=== PATIENT | male | born 1950 | race Caucasian/White ===

== ENCOUNTER 2016-11-17 10:58 | Observation (INO) | payer MEDICARE ==
[2016-11-17] VITALS (7 sets, daily range): BP systolic 129–173; BP diastolic 80–89; PULSE 63–75; RESP 16–20; TEMP 96.9–98.1; O2SAT 96–100
[~2016-11-17] VITALS: Ht 170.2 cm; Wt 72.4 kg
[2016-11-17] MEDS ORDERED: ATOR40TA16 PO (11:16)
[2016-11-17] MEDS ORDERED: DILT120T PO (11:16)
[2016-11-17] MEDS ORDERED: MONT10TA4 PO (11:16)
[2016-11-17] MEDS ORDERED: GLUC500C5 PO (11:16)
[2016-11-17] MEDS ORDERED: CALC1TAB87 PO (11:16)
[2016-11-17] MEDS ORDERED: ASPI325T PO (11:16)
[2016-11-17] MEDS ORDERED: MELO7.5T4 PO (11:16)
[2016-11-17] MEDS ORDERED: SODIUM CHLORIDE 0.9% FLUSH 5 ML FLUSH IVF PRN ×2 (11:30→12:45)
--- NOTE | 2016-11-17 11:32 | PD ---
HPI Chief Complaint: Chest Pain Time Seen by Provider: 11:09 Travel History International Travel<30 days: No Contact w/Intl Traveler<30days: No Traveled to known affect area: No History of Present Illness HPI This patient complains of chest pain. Duration is 2 weeks. Location is [facility]. He is currently feeling okay. Symptoms are brought on by exertion. He has history of cardiac stent in 2001. He had a stress test 18 months ago in [place]. He has no local cardiac physician. Symptoms severity is moderate. Symptoms fade after he rests. PFSH Past Medical History Heart Rhythm Problems: Yes Cardiovascular Problems: Yes High Cholesterol: Yes COPD: Yes Coronary Artery Disease: Yes Diminished Hearing: No GERD: Yes Hypertension: Yes Tetanus Vaccination: Unknown Influenza Vaccination: Yes Past Surgical History Coronary Stent: Yes Social History Alcohol Use: Yes Tobacco Use: No Substance Use: No Allergies-Medications (Allergen,Severity, Reaction): Coded Allergies: No Known Allergies (Unverified , 11/17/16) Reported Meds & Prescriptions Reported Meds & Active Scripts Active Reported Glucosamine (Glucosamine Sulfate) 500 Mg Cap 500 Mg PO DAILY Meloxicam 7.5 Mg Tab 7.5 Mg PO DAILY Calcium 600 with Vitamin D (Calcium Carbonate-Cholecalciferol) 600-400 mg-Unit Tab 1 Tab PO DAILY Aspirin 325 Mg Tab 325 Mg PO DAILY Montelukast (Montelukast Sodium) 10 Mg Tab 10 Mg PO HS Diltiazem (Diltiazem HCl) 120 Mg Tab 240 Mg PO DAILY Atorvastatin (Atorvastatin Calcium) 40 Mg Tab 40 Mg PO HS Review of Systems General / Constitutional: No: Fever Eyes: No: Visual changes HENT: No: Headaches Cardiovascular: Positive: Chest Pain or Discomfort Respiratory: No: Shortness of Breath Gastrointestinal: No: Abdominal Pain Genitourinary: No: Dysuria Musculoskeletal: No: Pain Skin: No Rash Neurologic: No: Weakness Psychiatric: No: Depression Endocrine: No: Polydipsia Hematologic/Lymphatic: No: Easy Bruising Physical Exam Narrative GENERAL: Well-nourished, well-developed patient in no apparent distress. SKIN: Warm and dry. HEAD: Atraumatic. Normocephalic. EYES: Pupils equal and round. No scleral icterus. No injection or drainage. ENT: No nasal bleeding or discharge. Mucous membranes pink and moist. NECK: Trachea midline. No JVD. CARDIOVASCULAR: Regular rate and rhythm. No murmur appreciated. RESPIRATORY: No accessory muscle use. Clear to auscultation. Breath sounds equal bilaterally. GASTROINTESTINAL: Abdomen soft, non-tender, nondistended. Hepatic and splenic margins not palpable. MUSCULOSKELETAL: No obvious deformities. No clubbing. No cyanosis. No edema. NEUROLOGICAL: Awake and alert. No obvious cranial nerve deficits. Motor grossly within normal limits. Normal speech. PSYCHIATRIC: Appropriate mood and affect; insight and judgment normal. Data Data Last Documented VS Vital Signs Date Time Temp Pulse Resp B/P Pulse Ox O2 Delivery O2 Flow Rate FiO2 11/17/16 12:31 66 16 166/80 97 Room Air 11/17/16 11:08 98.1 Orders Basic Metabolic Panel (Bmp) (11/17/16 11:22) Ckmb (Isoenzyme) Profile (11/17/16 11:22) Complete Blood Count With Diff (11/17/16 11:22) Prothrombin Time / Inr (Pt) (11/17/16 11:22) Act Partial Throm Time (Ptt) (11/17/16 11:22) Troponin I (11/17/16 11:22) Chest, Single Ap (11/17/16 11:22) Ecg Monitoring (11/17/16 11:22) Iv Access Insert/Monitor (11/17/16 11:22) Oximetry (11/17/16 11:22) Sodium Chloride 0.9% Flush (Ns Flush) (11/17/16 11:30) Admit Order (Ed Use Only) (11/17/16 12:32) Labs Laboratory Tests Test 11/17/16 11:00 White Blood Count 4.9 TH/MM3 Red Blood Count 5.24 MIL/MM3 Hemoglobin 15.6 GM/DL Hematocrit 47.2 % Mean Corpuscular Volume 90.2 FL Mean Corpuscular Hemoglobin 29.9 PG Mean Corpuscular Hemoglobin 33.1 % Concent Red Cell Distribution Width 12.2 % Platelet Count 213 TH/MM3 Mean Platelet Volume 8.4 FL Neutrophils (%) (Auto) 48.2 % Lymphocytes (%) (Auto) 35.3 % Monocytes (%) (Auto) 10.1 % Eosinophils (%) (Auto) 5.0 % Basophils (%) (Auto) 1.4 % Neutrophils # (Auto) 2.3 TH/MM3 Lymphocytes # (Auto) 1.7 TH/MM3 Monocytes # (Auto) 0.5 TH/MM3 Eosinophils # (Auto) 0.2 TH/MM3 Basophils # (Auto) 0.1 TH/MM3 CBC Comment DIFF FINAL Differential Comment Prothrombin Time 10.9 SEC Prothromb Time International 1.0 RATIO Ratio Activated Partial 26.6 SEC Thromboplast Time Sodium Level 144 MEQ/L Potassium Level 4.3 MEQ/L Chloride Level 108 MEQ/L Carbon Dioxide Level 28.5 MEQ/L Anion Gap 8 MEQ/L Blood Urea Nitrogen 15 MG/DL Creatinine 0.96 MG/DL Estimat Glomerular Filtration 78 ML/MIN Rate Random Glucose 84 MG/DL Calcium Level 8.8 MG/DL Total Creatine Kinase 100 U/L Troponin I LESS THAN 0.02 NG/ML MDM Medical Decision Making Medical Screen Exam Complete: Yes Emergency Medical Condition: Yes Medical Record Reviewed: Yes Differential Diagnosis Differential diagnosis includes [place], angina, pericarditis, pleurisy, GERD, anxiety. Narrative Course I have reviewed the patient's electronic medical record. Patient is never been here before IV placed I reviewed the EKG which shows sinus rhythm but no ST elevation I reviewed the chest x-ray which is normal Extended cardiac monitoring shows sinus rhythm without ectopy CBC is normal Metabolic profile is normal CK is normal Troponin is normal Coagulation studies are normal He had an aspirin prior to arrival Workup here is negative. However does have cardiac disease with a stent in place. He will require 23 are observation the chest pain center to rule out cardiac cause of his symptoms. He is agreeable Call is placed to hospitalist to discuss Diagnosis Primary Impression: Chest pain in adult Admitting Information Admitting Physician Requests: Observation Mario Ruiz MD Nov 17, 2016 11:32
--- NOTE | 2016-11-17 11:36 | RADHPO ---
EXAM DATE/TIME: 11/17/2016 11:26 [facility] COMPARISON: No previous studies available for comparison. INDICATIONS : Chest pain MEDICAL HISTORY : None. SURGICAL HISTORY : Cardiac stent ENCOUNTER: Initial ACUITY: 2 weeks PAIN SCORE: 2/10 LOCATION: Bilateral chest FINDINGS: A single view of the chest demonstrates the lungs to be symmetrically aerated without evidence of mas s, infiltrate or effusion. The cardiomediastinal contours are unremarkable. Osseous structures are intact. CONCLUSION: Normal examination. Madalyn Benítez MD on November 17, 2016 at 11:35 Board Certified Radiologist. This report was verified electronically.
[2016-11-17 11:40] LABS: AUTOMATED NEUTROPHIL # 2.3 TH/MM3 (1.8-7.7); BASOPHIL # 0.1 TH/MM3 (0-0.2); BASOPHIL % 1.4 % (0.0-2.0); EOSINOPHIL # 0.2 TH/MM3 (0-0.4); HEMATOCRIT 47.2 % (39.0-51.0); HEMO FLAGS DIFF FINAL; LYMPH % 35.3 % (9.0-44.0); LYMPHOCYTE # 1.7 TH/MM3 (1.0-4.8); MEAN CELL VOLUME 90.2 FL (80.0-100.0); MEAN CORPUSCULAR HEMOGLOBIN 29.9 PG (27.0-34.0); MEAN CORPUSCULAR HGB CONC 33.1 % (32.0-36.0); MONO % 10.1 % (0.0-8.0); NEUT % 48.2 % (16.0-70.0); PLATELET COUNT 213 TH/MM3 (150-450); RED BLOOD COUNT 5.24 MIL/MM3 (4.50-5.90); RED CELL DISTRIBUTION WIDTH 12.2 % (11.6-17.2); WHITE BLOOD COUNT 4.9 TH/MM3 (4.0-11.0)
[2016-11-17 11:49] LABS: CHLORIDE 108 MEQ/L (98-107); POTASSIUM 4.3 MEQ/L (3.5-5.1); SODIUM (NA) 144 MEQ/L (136-145)
[2016-11-17 11:53] LABS: ANION GAP 8 MEQ/L (5-15); BICARBONATE 28.5 MEQ/L (21.0-32.0); BLOOD UREA NITROGEN 15 MG/DL (7-18)
[2016-11-17 11:54] LABS: APTT (PATIENT) 26.6 SEC (24.3-30.1); PROTHROMBIN TIME - PATIENT 10.9 SEC (9.8-11.6)
[2016-11-17 11:56] LABS: GLOMERULAR FILTRATION RATE 78 ML/MIN (>89)
[2016-11-17 12:02] LABS: CREATINE KINASE 100 U/L (39-308)
[2016-11-17] MEDS ORDERED: ONDANSETRON HCL 4 MG/2 ML VIAL IV PRN (12:45)
[2016-11-17] MEDS ORDERED: MORPHINE SULFATE 4 MG/ML INJ IV PRN (12:45)
[2016-11-17] MEDS ORDERED: ACETAMINOPHEN/HYDROcodone 325 MG/7.5 MG TAB PO PRN (12:45)
[2016-11-17] MEDS ORDERED: NITROGLYCERIN 0.4 MG SL 25 TABS/BTL SL PRN (12:45)
[2016-11-17] MEDS ORDERED: ACETAMINOPHEN 500 MG CPLT PO PRN (12:45)
[2016-11-17] MEDS ORDERED: FAMOTIDINE 20 MG TAB PO ONE (13:15)
[2016-11-17] MEDS ORDERED: ALUMINUM/MAGNESIUM/SIMETH 30 ML CUP PO PRN (13:15)
[2016-11-17] MEDS ORDERED: ENALAPRILAT 1.25 MG/ML VIAL IV PUSH PRN (13:30)
[2016-11-17] MEDS ORDERED: cloNIDine HCL 0.1 MG TAB PO PRN (13:30)
--- NOTE | 2016-11-17 13:46 | HHI.HP ---
[facility] Service [place] Hospitalists Primary Care Physician Non-Staff Admission Diagnosis chest pain Diagnoses: (1) Chest pain in adult Diagnosis: Principal (2) HTN (hypertension) Diagnosis: Principal Chief Complaint: chest pain Travel History International Travel<30 Days: No Contact w/Intl Traveler <30 Da: No Traveled to Known Affected Are: No History of Present Illness 66-year-old male with history of CAD with 1 stent, COPD, hypertension , hyperlipidemia, and h/o GERD presents with complaint of chest pain over the lower sternum which radiates upward into his neck. He states pain started 2 weeks ago. He describes the pain as both "burning" and "achy". Patient states pain occurs with walking. He states it radiated up into his shoulders. He does state it feels different from angina he experienced prior to getting stent placed in 2001. He states he had sweating last night but denies any diaphoresis associated with chest pain itself. He denies any dizziness, cough, shortness of breath. He is noted to be hoarse on exam and states that he has been "running out of air" when talking the last couple of weeks. He states he used to have GERD but denies getting heartburn frequently now. Denied nausea or diarrhea. He additionally has had aching in his legs for the past couple of weeks. He states his is sick with cold or flu symptoms. Patient had a treadmill stress test in May 2015 which was normal, but he states he became quite short of breath while doing it. He just acquired a local PCP in [facility] after moving down here but does not have a local motorcycle delivery driver yet. Patient states he stopped using his Advair at the end of August due to insurance reasons. Review of Systems Other ROS x 10 negative unless otherwise indicated in HPI. Past Family Social History Past Medical History CAD COPD Hypertension Hyperlipidemia GERD Past Surgical History Cardiac catheterization, stent placement 2001 Vocal cord surgery, nodule last year Reported Medications Glucosamine (Glucosamine Sulfate) 500 Mg Cap 500 Mg PO DAILY Meloxicam 7.5 Mg Tab 7.5 Mg PO DAILY Calcium 600 with Vitamin D (Calcium Carbonate-Cholecalciferol) 600-400 mg-Unit Tab 1 Tab PO DAILY Aspirin 325 Mg Tab 325 Mg PO DAILY Montelukast (Montelukast Sodium) 10 Mg Tab 10 Mg PO HS Diltiazem (Diltiazem HCl) 120 Mg Tab 240 Mg PO DAILY Atorvastatin (Atorvastatin Calcium) 40 Mg Tab 40 Mg PO HS Allergies: Coded Allergies: No Known Allergies (Unverified , 11/17/16) Family History Father: CABG 3 at age 62; lived to age 85; hypertension. Mother: Ovarian cancer; hypertension. Older brother: Still living; Diabetes. Social History Patient drinks a 12 pack of beer per week. Quit smoking cigarettes 15 years ago. Physical Exam Vital Signs Vital Signs Date Time Temp Pulse Resp B/P Pulse Ox O2 Delivery O2 Flow Rate FiO2 11/17/16 12:31 66 16 166/80 97 Room Air 11/17/16 11:25 18 98 Room Air 11/17/16 11:11 66 18 98 Room Air 11/17/16 11:08 98.1 66 18 173/89 98 Physical Exam GENERAL: This is a well-nourished, well-developed patient, in no apparent distress. SKIN: No rashes, ecchymoses or lesions. Cool and dry. HEAD: Atraumatic. Normocephalic. EYES: No scleral icterus. No injection or drainage. NECK: Trachea midline. CHEST: No reproducible chest discomfort. CARDIOVASCULAR: Regular rate and rhythm without murmurs. RESPIRATORY: Clear to auscultation. Breath sounds equal bilaterally. No wheezes , rales, or rhonchi. GASTROINTESTINAL: Abdomen soft, non-tender, nondistended. MUSCULOSKELETAL: No lower extremity edema bilaterally. NEUROLOGICAL: Awake and alert. Motor grossly within normal limits. Normal speech. Laboratory Laboratory Tests Test 11/17/16 11:00 White Blood Count 4.9 Red Blood Count 5.24 Hemoglobin 15.6 Hematocrit 47.2 Mean Corpuscular Volume 90.2 Mean Corpuscular Hemoglobin 29.9 Mean Corpuscular Hemoglobin 33.1 Concent Red Cell Distribution Width 12.2 Platelet Count 213 Mean Platelet Volume 8.4 Neutrophils (%) (Auto) 48.2 Lymphocytes (%) (Auto) 35.3 Monocytes (%) (Auto) 10.1 Eosinophils (%) (Auto) 5.0 Basophils (%) (Auto) 1.4 Neutrophils # (Auto) 2.3 Lymphocytes # (Auto) 1.7 Monocytes # (Auto) 0.5 Eosinophils # (Auto) 0.2 Basophils # (Auto) 0.1 CBC Comment DIFF FINAL Differential Comment Prothrombin Time 10.9 Prothromb Time International 1.0 Ratio Activated Partial 26.6 Thromboplast Time Sodium Level 144 Potassium Level 4.3 Chloride Level 108 Carbon Dioxide Level 28.5 Anion Gap 8 Blood Urea Nitrogen 15 Creatinine 0.96 Estimat Glomerular Filtration 78 Rate Random Glucose 84 Calcium Level 8.8 Total Creatine Kinase 100 Troponin I LESS THAN 0.02 Result Diagram: 11/17/16 1100 11/17/16 1100 Imaging Last Impressions Chest X-Ray 11/17/16 1122 Signed Impressions: Service Date/Time: Thursday, November 17, 2016 11:26 - CONCLUSION: Normal examination. Madalyn Benítez MD Assessment and Plan Assessment and Plan 66-year-old male with: Chest pain: H/o CAD. Substernal radiating up toward the neck and upper arms. Differentials include GERD versus ischemia versus COPD. EKG #1 personally interpreted with septal T wave inversion, but no other ischemic abnormalities. Troponin 1 less than 0.02. Patient took 325 mg of aspirin this morning. -Serial EKGs and cardiac enzymes -Nitroglycerin SL/[place]/morphine prn chest pain -Continue 325 mg aspirin daily -One dose of Pepcid now. Scheduled Protonix 40 mg po daily. Maalox prn. -telemetry, vitals -We will plan to perform nuclear stress test in the am since patient did not tolerate exertion well on prior treadmill test provided ACS ruled out. HTN: BP 173/89 arrival. Maintaining in the 160s. -Patient took his Diltiazem this morning. Continue. -Clonidine 0.1 q 6 h prn SBP>160 -Enalapril 1.25 mg q6h prn SBP > 160 HLD: Continue statin. COPD: Lung exam benign. Chest x-ray personally interpreted without acute disease. Patient stopped using his Advair in August due to insurance reasons. -Albuterol prn wheezing/SOB. DVT prevention: TEDs/SCDs Written by Breanne Hwang PA-C acting as scribe for Dr. Rivera on 11/17/16 at 1300. The documentation accurately reflects the work and decisions performed face-to- face by wi Dr. Rivera on 11/17/16 at 1300. Breanne Hwang Nov 17, 2016 13:46
[2016-11-17 14:20] LABS: CREATINE KINASE 82 U/L (39-308)
[2016-11-17 17:20] LABS: CREATINE KINASE 80 U/L (39-308)
[2016-11-17] MEDS: SODIUM CHLORIDE 0.9% FLUSH 5 ML FLUSH IVF SCH (20:40)
[2016-11-17] MEDS ORDERED: ATORVASTATIN 40 MG TAB PO SCH (21:00)
[2016-11-17] MEDS ORDERED: MONTELUKAST SODIUM 10 MG TAB PO SCH (21:00)
[2016-11-18 01:20] VITALS: O2SAT 96
[2016-11-18 01:22] VITALS: BP 123/71; PULSE 64; RESP 18; TEMP 95.8; O2SAT 95
--- NOTE | 2016-11-18 07:55 | HHI.PR ---
Subjective Remarks Follow-up for chest pain. Patient states he experienced some "tingling" over the sternum this morning elicited by exertion when walking to the bathroom, and still feels a sensation there. He denies any shortness of breath. States he had some aching in his legs last night which improved with stretching and walking around and he was able to sleep. Objective Vitals Vital Signs Date Time Temp Pulse Resp B/P Pulse Ox O2 Delivery O2 Flow Rate FiO2 11/18/16 01:22 95.8 64 18 123/71 95 11/18/16 01:20 96 21 11/17/16 20:26 96.9 69 16 129/83 96 11/17/16 20:00 63 11/17/16 16:00 96 21 11/17/16 13:30 97.5 75 20 162/86 100 11/17/16 12:31 66 16 166/80 97 Room Air 11/17/16 11:25 18 98 Room Air 11/17/16 11:11 66 18 98 Room Air 11/17/16 11:08 98.1 66 18 173/89 98 I/O 11/17/16 11/17/16 11/17/16 11/18/16 11/18/16 11/18/16 07:00 15:00 23:00 07:00 15:00 23:00 Intake Total 0 ml Balance 0 ml Intake IV Total 0 ml # Voids 1 1 Result Diagram: 11/17/16 1100 11/17/16 1100 Imaging Objective Remarks GENERAL: Well nourished, well developed male in no apparent distress. SKIN: Warm and dry. HEAD: Atraumatic. Normocephalic. CARDIOVASCULAR: Regular rate and rhythm. No murmurs. RESPIRATORY: No accessory muscle use. Clear to auscultation. Breath sounds equal bilaterally. GASTROINTESTINAL: Abdomen soft, non-tender, nondistended. MUSCULOSKELETAL: No lower extremity edema bilaterally. NEUROLOGICAL: Awake and alert. Motor grossly within normal limits. Normal speech. PSYCHIATRIC: Appropriate mood and affect; insight and judgment normal. Urinary Catheter: No Vascular Central Line Catheter: No A/P Problem List: (1) Chest pain in adult ICD Code: R07.9 Status: Acute (2) HTN (hypertension) ICD Code: I10 Status: Acute Assessment and Plan 66-year-old male with: Chest pain: H/o CAD. Substernal radiating up toward the neck and upper arms. Differentials include GERD versus ischemia versus COPD. EKGs x 3 personally interpreted. EKG #1 with septal T wave inversion, but no other ischemic abnormalities. EKGs #2 and #3 with NSR and no ischemic abnormalities. Troponin 3 less than 0.02. -Nitroglycerin SL/[place]/morphine prn chest pain -Continue 325 mg aspirin daily -Scheduled Protonix 40 mg po daily. Maalox prn. -telemetry, vitals -Although patient does not have ischemic abnormalities on EKG and he desires to perform exercise treadmill test, I believe nuclear test will be a safer option for the patient as he seems to have had difficulty with ETT when performed in 2014 and has also been having leg aches recently. He tells me that if he develops pain while on the treadmill he could just stop, but I informed the patient that if the ETT is stopped prior to completion, he would have to be converted to a nuclear stress test anyway. [facility] HTN: BP 173/89 arrival. Improved this morning. -Continue Diltiazem. -Clonidine 0.1 q 6 h prn SBP>160 -Enalapril 1.25 mg q6h prn SBP > 160 HLD: Continue statin. COPD: Lung exam benign. Chest x-ray without acute disease. Patient stopped using his Advair in August. -Albuterol prn wheezing/SOB. DVT prevention: TEDs/SCDs; patient states he took SCDs off because they were hurting his legs. Myocardial perfusion scan without evidence of ischemia. EF 69%. Patient was informed of results. Discharge disposition: Home in stable condition. Diet: Patient advised of heart healthy and GERD diets. Activity: Avoid strenuous activity. Medications: Resume home medications. Follow up: He is advised follow-up with primary care physician and acquire a local brush hand. Breanne Hwang Nov 18, 2016 07:55 Columba Rivera MD Nov 18, 2016 13:40
[2016-11-18] MEDS: SODIUM CHLORIDE 0.9% FLUSH 5 ML FLUSH IVF SCH (07:58)
[2016-11-18 08:00] VITALS: BP 142/82; PULSE 67; PULSE 71; RESP 18; TEMP 98; O2SAT 97
[2016-11-18] MEDS ORDERED: DILTIAZEM-CD 240 MG CAP ER PO SCH ×2 (09:00→13:30)
[2016-11-18] MEDS ORDERED: ASPIRIN 325 MG TAB PO SCH (09:00)
[2016-11-18] MEDS ORDERED: PANTOPRAZOLE SOD 40 MG DELAYED RELEASE TAB PO SCH (09:00)
[2016-11-18] MEDS ORDERED: REGADENOSON INJ 0.4 MG/5 ML SYR IV ONE (11:20)
[2016-11-18 12:00] VITALS: BP 149/88; PULSE 68; RESP 16; TEMP 97.7; O2SAT 83
--- NOTE | 2016-11-18 12:37 | RADHPO ---
EXAM DATE/TIME: 11/18/2016 11:17 [facility] COMPARISON: No previous studies available for comparison. INDICATIONS : Center chest pain for 2 weeks. Congestive heart failure, coronary artery disease and cardiac stent. A ngina. Unable to walk on treadmill. DOSE: 25.8 mCi Tc99m Myoview at stress. 8.1 mCi Tc99m Myoview at rest. 0.4 mg Lexiscan STRESS SYMPTOMS: Midsternal chest pain. EJECTION FRACTION: 69% MEDICAL HISTORY : Chronic obstructive pulmonary disease. Hypertension. SURGICAL HISTORY : Coronary artery stent. Right shoulder surgery. ENCOUNTER: Initial ACUITY: 2 weeks PAIN SCALE: 3/10 LOCATION: Midsternal chest TECHNIQUE: The patient underwent pharmacologic stress with infusion of prescribed dose. Continuous ECG tracing was monitored during stress. Gated SPECT imaging was performed after stress and conventional SPECT i maging was performed at rest. The examination was performed on a SPECT/CT scanner, both attenuation and non-corrected datasets were reviewed. FINDINGS: DISTRIBUTION: The maximum perfused segment at stress is in the inferoseptal wall. PERFUSION STUDY: The pattern of perfusion at stress is within normal limits. GATED STUDY: There is intact wall motion and thickening without hypokinetic or dyskinetic segments. CONCLUSION: No significant fixed or reversible perfusion abnormalities RISK CATEGORY: Low (<1% Annual Mortality Rate) Steve Soto MD on November 18, 2016 at 12:33 Board Certified Radiologist. This report was verified electronically.
--- NOTE | 2016-11-18 12:59 | HHI.DCPOC ---
Discharge Care Plan Diagnosis: (1) Chest pain in adult Your Health Problems Are: Chest Pain Goals to Promote Your Health * To prevent worsening of your condition and complications * To maintain your health at the optimal level Directions to Meet Your Goals Take your medications as prescribed Follow your dietary instruction Follow activity as directed Keep your appointments as scheduled Take your immunizations and boosters as scheduled If your symptoms worsen call your PCP, if no PCP go to Urgent Care Center or Emergency Room Smoking is Dangerous to Your Health. Avoid second hand smoke Call the 24-hour hour crisis hotline for domestic abuse at Breanne Hwang Nov 18, 2016 12:59
--- NOTE | 2016-11-18 13:59 | TR ---
Date Performed: 11/18/2016 Time Performed: 11:27:49 DOCTOR: Jace Li DRUG LIST: CLINICAL HISTORY: CHEST PAIN REASON FOR TEST: REASON FOR ENDING: OBSERVATION: CONCLUSION: Lexiscan stress test was performed under standard four minute protocol. Radionuclide was injected one minute prior to ending the test. The patient was asymptomatic, systolic blood press ure was mildly elevated. No electrocardiographic abnormalities were present to suggest ischemia. Caden very was quick and uneventful, systolic blood pressure remained mildly elevated. Nuclear imaging and interpretation are pending. COMMENTS:
--- NOTE | 2016-11-18 14:16 | EKG ---
Date Performed: 11/17/2016 Time Performed: 10:56:24 PTAGE: 66 years EKG: Sinus rhythm . Poor R wave progression - probable normal variant Septal T wave changes are nonspecific Borderline ECG NO PREVIOUS TRACING DOCTOR: Eleno Quinones Interpretating Date/Time 11/18/2016 14:11:22
--- NOTE | 2016-11-18 14:28 | EKG ---
Date Performed: 11/17/2016 Time Performed: 16:49:36 PTAGE: 66 years EKG: Sinus rhythm Short [place] interval Poor R wave progression - probable normal variant Borderline ECG Compared to prior tracing no significant change PREVIOUS TRACING : 11/17/2016 13.56 DOCTOR: Eleno Quinones Interpretating Date/Time 11/18/2016 14:26:49
--- NOTE | 2016-11-18 14:30 | EKG ---
Date Performed: 11/17/2016 Time Performed: 13:56:52 PTAGE: 66 years EKG: Sinus rhythm . Poor R wave progression - probable normal variant Borderline ECG Compared to prior tracing no signi ficant change PREVIOUS TRACING 11/17/2015 @10.56.24 DOCTOR: Eleno Quinones Interpretating Date/Time 11/18/2016 14:28:22
== END 2016-11-18 14:28 | disposition home or self-care (01) ==
LOC: PHED 10:58 → PHEDA 12:33 → PH3A 13:20
PROVIDERS: ADMIT Hospitalist; ATTEND Hospitalist
DX: R07.9 Chest pain, unspecified (principal); I10 Essential (primary) hypertension; I25.10 Atherosclerotic heart disease of native coronary artery without angina pectoris; J44.9 Chronic obstructive pulmonary disease, unspecified; E78.00 Pure hypercholesterolemia, unspecified; Z95.5 Presence of coronary angioplasty implant and graft; Z87.891 Personal history of nicotine dependence
CPT/HCPCS: 71010; 78452; 80048; 82550; 84484; 85025; 85610; 85730; 93005; 93017; 99285; A9502; G0378; J2785

== ENCOUNTER 2016-12-12 14:20 | Inpatient (IN) | payer MEDICARE ==
[~2016-12-12] VITALS: Ht 170.2 cm; Wt 72.0 kg
[~2016-12-12 14:20] MED LIST: ASPI325T PO; ATOR40TA16 PO; CALC1TAB87 PO; DILT120T PO; GLUC500C5 PO; MELO7.5T4 PO; MONT10TA4 PO
[2016-12-12 14:22] VITALS: BP 199/89; PULSE 92; RESP 14; TEMP 98.4; O2SAT 96
[2016-12-12 15:47] LABS: AUTOMATED NEUTROPHIL # 5.7 TH/MM3 (1.8-7.7); BASOPHIL % 0.3 % (0.0-2.0); EOSINOPHIL # 0.1 TH/MM3 (0-0.4); EOSINOPHIL % 0.8 % (0.0-4.0); HEMATOCRIT 44.9 % (39.0-51.0); HEMO FLAGS DIFF FINAL; LYMPH % 15.5 % (9.0-44.0); LYMPHOCYTE # 1.2 TH/MM3 (1.0-4.8); MEAN CELL VOLUME 88.6 FL (80.0-100.0); MEAN CORPUSCULAR HEMOGLOBIN 31.2 PG (27.0-34.0); MEAN CORPUSCULAR HGB CONC 35.2 % (32.0-36.0); MONO % 7.6 % (0.0-8.0); NEUT % 75.8 % (16.0-70.0); PLATELET COUNT 193 TH/MM3 (150-450); RED BLOOD COUNT 5.07 MIL/MM3 (4.50-5.90); RED CELL DISTRIBUTION WIDTH 12.8 % (11.6-17.2); WHITE BLOOD COUNT 7.5 TH/MM3 (4.0-11.0)
[2016-12-12 16:11] LABS: ANION GAP 9 MEQ/L (5-15); BLOOD UREA NITROGEN 7 MG/DL (7-18); CHLORIDE 102 MEQ/L (98-107); GLOMERULAR FILTRATION RATE 84 ML/MIN (>89); POTASSIUM 3.8 MEQ/L (3.5-5.1); SODIUM (NA) 137 MEQ/L (136-145)
[2016-12-12 16:17] LABS: CREATINE KINASE 84 U/L (39-308)
[2016-12-12] MEDS ORDERED: ONDANSETRON HCL 4 MG/2 ML VIAL IV ONE (20:45)
[2016-12-12] MEDS ORDERED: PANTOPRAZOLE SODIUM 40 MG VIAL IV PUSH ONE (20:45)
[2016-12-12] MEDS ORDERED: SODIUM CHLORID 0.9% 500 ML INJ 500 ML IV ONE (20:45)
--- NOTE | 2016-12-12 20:54 | PD ---
HPI Chief Complaint: Abdominal Pain Time Seen by Provider: 20:43 Travel History International Travel<30 days: No Contact w/Intl Traveler<30days: No Traveled to known affect area: No History of Present Illness HPI The patient is a 66 year old male who presents to the [facility] emergency department with a history of abdominal pain that he reports began at 6 AM this morning. He reports that it was present in the right upper quadrant of the abdomen and radiated across the upper portion of the abdomen to the left side. He reports that it also seems to radiate into his back. The patient denies ever having a pain like this previously. The patient reports that the pain is constant although it waxes and wanes in severity. He reports that eating seems to make it worse. The patient denies having any fevers. He denies having any history of gallbladder disease. He denies any prior history of pancreatitis. He denies any recent alcohol intake. He reports having nausea but no vomiting or diarrhea. He reports that he did have softer than usual stools 2 today. The patient denies any recent fevers, cough, congestion, neck pain, chest pain, shortness of breath, urinary symptoms, or neurologic symptoms. [facility] Past Medical History Narrative Medical The patient's past medical history is significant for coronary artery disease status post placement, history of recent chest pain admitted to the chest pain center with a negative stress test in November 2016, history of acid reflux and gastritis, history of hypertension, asthma, history of arthritis, hyperlipidemia , COPD. Hx Anticoagulant Therapy: Yes Asthma: No Blood Disorders: No Anxiety: Yes (due to stress ) Depression: No Heart Rhythm Problems: Yes Cancer: No Cardiovascular Problems: Yes (HTN, STENT) High Cholesterol: Yes Chest Pain: Yes Congestive Heart Failure: Yes (possible) COPD: Yes Coronary Artery Disease: Yes Diabetes: No Diminished Hearing: No Endocrine: No GERD: Yes Genitourinary: Yes (prostate issues) Hypertension: Yes Immune Disorder: No Neurologic: No Psychiatric: Yes Reproductive: No Respiratory: Yes (ASTHMA) Sleep Apnea: No Thyroid Disease: No Past Surgical History Narrative Surgical The patient's past surgical history is significant for a cardiac catheterization with stent placement, history of vocal cord surgery for a nodule resection. Coronary Stent: Yes Social History Alcohol Use: Yes Tobacco Use: No Substance Use: No Allergies-Medications (Allergen,Severity, Reaction): Coded Allergies: No Known Allergies (Unverified , 12/12/16) Reported Meds & Prescriptions Reported Meds & Active Scripts Active Reported Isosorbide Mononitrate ER (Isosorbide Mononitrate) 30 Mg Indra 30 Mg PO DAILY Omeprazole 40 Mg Cap 40 Mg PO DAILY Glucosamine (Glucosamine Sulfate) 500 Mg Cap 500 Mg PO DAILY Aspirin 325 Mg Tab 325 Mg PO DAILY Montelukast (Montelukast Sodium) 10 Mg Tab 10 Mg PO HS Diltiazem (Diltiazem HCl) 120 Mg Tab 240 Mg PO DAILY Atorvastatin (Atorvastatin Calcium) 40 Mg Tab 40 Mg PO HS Review of Systems Except as stated in HPI: all other systems reviewed are Neg General / Constitutional: No: Fever Eyes: No: Visual changes HENT: No: Headaches Cardiovascular: Positive: Chest Pain or Discomfort Respiratory: No: Shortness of Breath Gastrointestinal: Positive: Nausea, Abdominal Pain, Changes in Bowel Habits, Indigestion, No: Vomiting, Diarrhea, Loss of Appetite Genitourinary: No: Urgency, Frequency, Dysuria, Flank Pain Musculoskeletal: No: Pain Skin: No Rash Neurologic: No: Weakness, Focal Abnormalities, Change in Mentation, Slurred Speech, Sensory Disturbance Psychiatric: No: Depression Endocrine: No: Polydipsia Hematologic/Lymphatic: No: Easy Bruising Physical Exam Narrative General: The patient is a well-developed well-nourished male in no acute distress. Head and Neck exam: Head is normocephalic atraumatic. Eyes: Pupils are equal round and reactive to light. Nose: Midline septum with pink mucous membranes Mouth: Dentition unremarkable. Moist mucus membranes. Posterior oropharynx is not erythematous. No tonsillar hypertrophy. Uvula midline. Airway patent. Neck: No palpable lymphadenopathy. No nuchal rigidity. No thyromegaly. Cardiovascular: Regular rate and rhythm without murmurs, gallops, or rubs. Lungs: Clear to auscultation bilaterally. No wheezes, rhonchi, or rales. Abdomen: Soft, with tenderness on palpation in the right upper quadrant and midepigastric area of the abdomen with a positive Garcia sign. No other tenderness on palpation of the other 3 quadrants of the abdomen. No guarding, rebound, or rigidity. No tenderness on palpation of McBurney's point. Normal bowel sounds are audible. Extremities: No clubbing, cyanosis, or edema. 2+ pulses in all 4 extremities. No calf tenderness on palpation. Back: No spinous process tenderness to palpation. No costovertebral angle tenderness to palpation. Neurologic Exam: Grossly nonfocal. Skin Exam: No rash noted. Intact skin that is warm and dry. Data Data Last Documented VS Vital Signs Date Time Temp Pulse Resp B/P Pulse Ox O2 Delivery O2 Flow Rate FiO2 12/12/16 22:30 82 14 161/86 98 Room Air 12/12/16 14:22 98.4 Orders Electrocardiogram (12/12/16 15:00) Complete Blood Count With Diff (12/12/16 15:00) Basic Metabolic Panel (Bmp) (12/12/16 15:00) Ckmb (Isoenzyme) Profile (12/12/16 15:00) Troponin I (12/12/16 15:00) Hepatic Functional Panel (12/12/16 20:43) Lipase (12/12/16 20:43) Urinalysis - C+S If Indicated (12/12/16 20:43) Us Abdomen Gallbladder (12/12/16 20:43) Iv Access Insert/Monitor (12/12/16 20:43) Ecg Monitoring (12/12/16 20:43) Oximetry (12/12/16 20:43) Ondansetron Inj (Zofran Inj) (12/12/16 20:45) Pantoprazole Inj (Protonix Inj) (12/12/16 20:45) Sodium Chlorid 0.9% 500 Ml Inj (Ns 500 M (12/12/16 20:45) Ct Abd/Pel W Iv Contrast(Rout) (12/12/16 20:53) Morphine Inj (Morphine Inj) (12/12/16 21:15) Iohexol 350 Inj (Omnipaque 350 Inj) (12/12/16 21:52) Piperacil-Tazo 3.375 Gm Premix (Zosyn 3. (12/12/16 23:00) Morphine Inj (Morphine Inj) (12/12/16 23:00) Admit Order (Ed Use Only) (12/12/16 23:01) Labs Laboratory Tests Test 12/12/16 12/12/16 14:32 22:37 White Blood Count 7.5 TH/MM3 Red Blood Count 5.07 MIL/MM3 Hemoglobin 15.8 GM/DL Hematocrit 44.9 % Mean Corpuscular Volume 88.6 FL Mean Corpuscular Hemoglobin 31.2 PG Mean Corpuscular Hemoglobin 35.2 % Concent Red Cell Distribution Width 12.8 % Platelet Count 193 TH/MM3 Mean Platelet Volume 8.6 FL Neutrophils (%) (Auto) 75.8 % Lymphocytes (%) (Auto) 15.5 % Monocytes (%) (Auto) 7.6 % Eosinophils (%) (Auto) 0.8 % Basophils (%) (Auto) 0.3 % Neutrophils # (Auto) 5.7 TH/MM3 Lymphocytes # (Auto) 1.2 TH/MM3 Monocytes # (Auto) 0.6 TH/MM3 Eosinophils # (Auto) 0.1 TH/MM3 Basophils # (Auto) 0.0 TH/MM3 CBC Comment DIFF FINAL Differential Comment Sodium Level 137 MEQ/L Potassium Level 3.8 MEQ/L Chloride Level 102 MEQ/L Carbon Dioxide Level 26.0 MEQ/L Anion Gap 9 MEQ/L Blood Urea Nitrogen 7 MG/DL Creatinine 0.90 MG/DL Estimat Glomerular Filtration 84 ML/MIN Rate Random Glucose 98 MG/DL Calcium Level 9.0 MG/DL Total Bilirubin 1.7 MG/DL Direct Bilirubin 0.9 MG/DL Indirect Bilirubin 0.8 MG/DL Aspartate Amino Transf 164 U/L (AST/SGOT) Alanine Aminotransferase 116 U/L (ALT/SGPT) Alkaline Phosphatase 125 U/L Total Creatine Kinase 84 U/L Troponin I LESS THAN 0.02 NG/ML Total Protein 7.6 GM/DL Albumin 4.1 GM/DL Lipase 4081 U/L Urine Color YELLOW Urine Turbidity HAZY Urine pH 7.5 Urine Specific [place] 1.019 Urine Protein NEG mg/dL Urine Glucose (UA) NEG mg/dL Urine Ketones 40 mg/dL Urine Occult Blood NEG Urine Nitrite NEG Urine Bilirubin NEG Urine Urobilinogen LESS THAN 2.0 MG/DL Urine Leukocyte Esterase NEG Urine WBC LESS THAN 1 /hpf Urine Mucus FEW /lpf Microscopic Urinalysis Comment CULT NOT INDICATED MDM Medical Decision Making Medical Screen Exam Complete: Yes Emergency Medical Condition: Yes Medical Record Reviewed: Yes Interpretation(s) Last Impressions Abdomen/Pelvis CT 12/12/162052 Signed Impressions: Service Date/Time: Monday, December 12, 2016 21:46 - CONCLUSION: 1. Gallbladder wall thickening with some stranding in the pericholecystic fat most characteristic of cholecystitis. No significant biliary ductal dilatation. 2. Multiple hepatic cysts and bilateral renal cysts. Robbin Wheat MD Gall Bladder Ultrasound 12/12/162042 Signed Impressions: Service Date/Time: Monday, December 12, 2016 20:54 - CONCLUSION: 1. Thickening of gallbladder wall to [address] correlation, findings are most characteristic of cholecystitis. No biliary ductal dilatation. No free fluid. 2. Multiple hepatic and right renal cysts. Robbin Wheat MD Differential Diagnosis Acute pancreatitis, versus biliary colic, versus acute cholecystitis, versus colitis, versus diverticulitis, versus pyelonephritis, versus kidney stone Narrative Course During the course of the patients emergency department visit, the patients history, examination, and differential diagnosis were reviewed with the patient. The patient had IV access obtained and blood work sent for analysis. The patient was placed on a satellite project site monitor with oximetry and blood pressure monitoring. An EKG was done on arrival. A CT scan of the abdomen and pelvis was ordered, ultrasound of the right upper quadrant to evaluate for possible gallstones has been ordered. The patient was provided Zofran 4 mg IV, Protonix 40 mg IV, normal saline a 500 mL bolus times one. The patients laboratory studies were reviewed and remarkable for a white count of 7.5, hemoglobin 15.8, platelets 193 with 75.8 neutrophils. BMP is remarkable for a GFR of 84 CPK is 84, troponin I is less than 0.02. CMP is remarkable for a GFR of 84, total bilirubin 1.7, direct bilirubin 0.9, AST 164, ALT 116, alkaline phosphatase 125, lipase is 4081. Radiology studies were reviewed and remarkable for evidence of acute cholecystitis on ultrasound and CAT scan. The patient's case was discussed with Dr. Celis, the general surgeon on-call. He did agree with the plan to administer Zosyn 3.375 g IV. He requested the patient be made nothing by mouth after midnight. He requested that the patient be admitted to the hospitalist service due to his other comorbid medical problems. He plans to take the patient to the OR in the afternoon tomorrow. The patients results were discussed with the patient, including the plan of care. I explained that further testing and/ or monitoring is indicated based on the patients history, examination, and/ or laboratory findings. Therefore, I recommended admission for additional evaluation. The patient expressed understanding and was agreeable with this plan. The patient was admitted to the hospital in stable condition and sent to a bed under the care of the hospitalist service. Physician Communication Physician Communication The patient's case is discussed with Dr. Celis as dictated above. A call has been placed out to the hospitalist that admits for [facility] for admission. Diagnosis Primary Impression: Abdominal pain Qualified Code: R10.11 - Right upper quadrant abdominal pain Additional Impressions: Acid reflux disease Qualified Code: K21.9 - Gastroesophageal reflux disease, esophagitis presence not specified Acute cholecystitis Acute pancreatitis Qualified Code: K85.90 - Acute pancreatitis without infection or necrosis, unspecified pancreatitis type Admitting Information Admitting Physician Requests: Admit Macey Disla MD Dec 12, 2016 20:54
[2016-12-12] MEDS ORDERED: MORPHINE SULFATE 4 MG/ML INJ IV PUSH ONE ×2 (21:15→23:00)
[2016-12-12 21:26] VITALS: BP 182/86; PULSE 76; RESP 14; O2SAT 96
[2016-12-12] MEDS ORDERED: OMEP40CA2 PO (21:37)
[2016-12-12] MEDS ORDERED: ISOS30TA3 PO (21:38)
[2016-12-12 21:39] VITALS: BP 177/82; PULSE 78; RESP 14; O2SAT 96
[2016-12-12] MEDS ORDERED: IOHEXOL 350 MG/ML 10 ML VIAL (for RAD DIAG) IV ONE (21:52)
[2016-12-12 22:30] VITALS: BP 161/86; PULSE 82; RESP 14; O2SAT 98
--- NOTE | 2016-12-12 22:33 | RADRPT ---
EXAM DATE/TIME: 12/12/2016 21:46 [facility] COMPARISON: No previous studies available for comparison. INDICATIONS : RUQ abdominal pain for 2 days. IV CONTRAST: 90 cc Omnipaque 350 (iohexol) IV ORAL CONTRAST: No oral contrast ingested. RADIATION DOSE: 9.96 CTDIvol (mGy) MEDICAL HISTORY : Cardiovascular disease. Hypertension. Chronic obstructive pulmonary disease.GERD SURGICAL HISTORY : None. ENCOUNTER: Initial ACUITY: 2 days PAIN SCALE: 4/10 LOCATION: Right upper quadrant Abdomen/pelvis TECHNIQUE: Volumetric scanning of the abdomen and pelvis was performed. Using automated exposure control and ad justment of the mA and/or kV according to patient size, radiation dose was kept as low as reasonably achievable to obtain optimal diagnostic quality images. FINDINGS: Lung bases demonstrate some dependent atelectasis. There are numerous cysts within the liver, especia lly in the left lobe with the largest measuring about 2.7 cm in diameter. There is gallbladder wall thickening and some mucosal enhancement. They are inflammatory changes in t he fat around the gallbladder most characteristic of a cholecystitis. There is no biliary ductal dila tation. Adrenals, pancreas and spleen unremarkable. Bilateral renal cysts noted. No hydronephrosis. No free or free fluid. No bowel obstruction. No adenopathy. No acute bony abnormalities. CONCLUSION: 1. Gallbladder wall thickening with some stranding in the pericholecystic fat most characteristic of cholecystitis. No significant biliary ductal dilatation. 2. Multiple hepatic cysts and bilateral renal cysts. Robbin Wheat MD on December 12, 2016 at 22:27 Board Certified Radiologist. This report was verified electronically.
--- NOTE | 2016-12-12 22:36 | RADRPT ---
EXAM DATE/TIME: 12/12/2016 20:54 [facility] COMPARISON: No previous studies available for comparison. INDICATIONS : Right upper quadrant pain. MEDICAL HISTORY : Chronic obstructive pulmonary disease. Hypertension. Hypercholesterolemia. Coronary artery disease. G astroreflux disease. SURGICAL HISTORY : Coronary stent. Right shoulder repair. ENCOUNTER: Initial ACUITY: 1 day PAIN SCORE: 9/10 LOCATION: Right upper quadrant MEASUREMENTS: LIVER: 13.5 cm length COMMON DUCT: 5 mm RIGHT KIDNEY: 10.9 x 5.3 x 5.5 cm FINDINGS: Gall bladder wall is thickened to 5 mm. There is gallbladder sludge present. No definite gallstone. Multiple hepatic cysts present measuring up to 2.5 cm in the left lobe. Portal venous flow is normal direction. Right renal cysts present measuring up to 2.6 cm lower pole and 3 cm mid pole. No right-sided hydrone phrosis. No free fluid. CONCLUSION: 1. Thickening of gallbladder wall to [address] correlation, findings are most characteristic of cholecystitis. No biliary ductal dilatation. No free fluid. 2. Multiple hepatic and right renal cysts. Robbin Wheat MD on December 12, 2016 at 22:32 Board Certified Radiologist. This report was verified electronically.
[2016-12-12 22:54] LABS: BLOOD, URINE NEG (NEG); GLUCOSE,URINE NEG (NEG); KETONE, URINE 40 mg/dL (NEG); MUCUS URINE FEW /lpf (OCC); NITRITE,URINE NEG (NEG); PH, URINE 7.5 (5.0-8.5); URINE COLOR YELLOW (YELLW/STRAW)
[2016-12-12 22:57] LABS: COMMENT (UR) CULT NOT INDICATED; CULTURE IF INDICATED CULT NOT INDICATED
[2016-12-12] MEDS ORDERED: PIPERACIL-TAZO 3.375 GM PREMIX 50 ML IV ONE (23:00)
[2016-12-12 23:14] LABS: INDIRECT BILIRUBIN 0.8 MG/DL (0.0-0.8); TOTAL BILIRUBIN ADULT 1.7 MG/DL (0.2-1.0)
[2016-12-13] VITALS (7 sets, daily range): BP systolic 100–162; BP diastolic 56–88; PULSE 55–86; RESP 14–18; TEMP 98.1; O2SAT 95–99
[2016-12-13] MEDS: SODIUM CHLOR 0.9% 1000 ML INJ 1,000 ML IV SCH ×3 (00:45→16:30)
[2016-12-13] MEDS ORDERED: SODIUM CHLOR 0.9% 1000 ML INJ 1,000 ML IV SCH (01:25)
[2016-12-13] MEDS ORDERED: NALOXONE HCL 0.4 MG/ML AMP IV PRN (01:30)
[2016-12-13] MEDS ORDERED: SODIUM CHLORIDE 0.9% FLUSH 5 ML FLUSH FLUSH PRN (01:30)
[2016-12-13] MEDS: MORPHINE SULFATE 4 MG/ML INJ IV PUSH PRN ×2 (02:06→04:44)
[2016-12-13] MEDS: PIPERACIL-TAZO 4.5 GM PREMIX 100 ML IV SCH ×4 (04:43→22:28)
--- NOTE | 2016-12-13 06:49 | HHI.HP ---
[facility] Service [place] Hospitalists Primary Care Physician Non-Staff Admission Diagnosis Acute Cholecystitis Diagnoses: Chief Complaint: Abdominal pain Travel History International Travel<30 Days: No Contact w/Intl Traveler <30 Da: No Traveled to Known Affected Are: No History of Present Illness History from patient, ER physician communication, and review of medical records. Patient reported that he came to the hospital because he has been having this abdominal pain. He stated it was in the middle of his abdomen, pointing to towards mid epigastrium. Also reports of nausea all day long. Did not vomit. Denies any diarrhea or constipation. Denies any hematemesis/hematochezia/melena/hematuria. Denies fever. Patient states that he did have appendectomy previously. However still has his gallbladder. Reports he has not drank any alcohol for the past 3 weeks. He usually drinks socially also he tends to drink about 6 beers when he drinks. Denies any any prior history of gallstones. Review of Systems Other 12 point review of system was obtained and negative apart from what is mentioned in HPI Past Family Social History Past Medical History Hypertension Hyperlipidemia COPD Past Surgical History Appendectomy BPH Reported Medications Patient's medications listed in EMRreviewed Allergies: Coded Allergies: No Known Allergies (Unverified , 12/12/16) Family History Reports a family history of diabetes and some members. Also had history of heart disease and others. Social History Used to smoke cigarettes, quit 12 years ago. Denies any alcohol abuse or drug abuse. Physical Exam Vital Signs Vital Signs Date Time Temp Pulse Resp B/P Pulse Ox O2 Delivery O2 Flow Rate FiO2 12/13/16 06:30 55 18 127/60 96 Room Air 12/13/16 06:27 18 12/13/16 04:20 80 18 155/82 99 Room Air 12/13/16 02:02 81 18 144/88 95 Room Air 12/13/16 01:00 80 14 162/83 98 Room Air 12/12/16 22:30 82 14 161/86 98 Room Air 12/12/16 21:39 78 14 177/82 96 Room Air 12/12/16 21:26 76 14 182/86 96 Room Air 12/12/16 14:22 98.4 92 14 199/89 96 Room Air Physical Exam GENERAL: This is a well-nourished, well-developed patient, in no apparent distress. SKIN: No rashes, ecchymoses or lesions. Cool and dry. HEAD: Atraumatic. Normocephalic. No temporal or scalp tenderness. EYES: No scleral icterus. No injection or drainage. ENT: Nose without bleeding, purulent drainage or septal hematoma. Airway patent. NECK: Trachea midline. No JVD CARDIOVASCULAR: Regular rate and rhythm without murmurs, gallops, or rubs. RESPIRATORY: Clear to auscultation. Breath sounds equal bilaterally. No wheezes , rales, or rhonchi. GASTROINTESTINAL: Abdomen soft, tenderness diffusely more so at epigastric, nondistendedNo guarding. MUSCULOSKELETAL: Extremities without clubbing, cyanosis, or edema.No calf tenderness. NEUROLOGICAL: Awake and alert. Motor and sensory grossly within normal limits. Normal speech. Laboratory Laboratory Tests Test 12/12/16 12/12/16 14:32 22:37 White Blood Count 7.5 Red Blood Count 5.07 Hemoglobin 15.8 Hematocrit 44.9 Mean Corpuscular Volume 88.6 Mean Corpuscular Hemoglobin 31.2 Mean Corpuscular Hemoglobin 35.2 Concent Red Cell Distribution Width 12.8 Platelet Count 193 Mean Platelet Volume 8.6 Neutrophils (%) (Auto) 75.8 Lymphocytes (%) (Auto) 15.5 Monocytes (%) (Auto) 7.6 Eosinophils (%) (Auto) 0.8 Basophils (%) (Auto) 0.3 Neutrophils # (Auto) 5.7 Lymphocytes # (Auto) 1.2 Monocytes # (Auto) 0.6 Eosinophils # (Auto) 0.1 Basophils # (Auto) 0.0 CBC Comment DIFF FINAL Differential Comment Sodium Level 137 Potassium Level 3.8 Chloride Level 102 Carbon Dioxide Level 26.0 Anion Gap 9 Blood Urea Nitrogen 7 Creatinine 0.90 Estimat Glomerular Filtration 84 Rate Random Glucose 98 Calcium Level 9.0 Total Bilirubin 1.7 Direct Bilirubin 0.9 Indirect Bilirubin 0.8 Aspartate Amino Transf 164 (AST/SGOT) Alanine Aminotransferase 116 (ALT/SGPT) Alkaline Phosphatase 125 Total Creatine Kinase 84 Troponin I LESS THAN 0.02 Total Protein 7.6 Albumin 4.1 Lipase 4081 Urine Color YELLOW Urine Turbidity HAZY Urine pH 7.5 Urine Specific [place] 1.019 Urine Protein NEG Urine Glucose (UA) NEG Urine Ketones 40 Urine Occult Blood NEG Urine Nitrite NEG Urine Bilirubin NEG Urine Urobilinogen LESS THAN 2.0 Urine Leukocyte Esterase NEG Urine WBC LESS THAN 1 Urine Mucus FEW Microscopic Urinalysis Comment CULT NOT INDICATED Result Diagram: 12/12/16 1432 12/12/16 1432 Imaging Laboratory Tests Test 12/12/16 12/12/16 14:32 22:37 Neutrophils (%) (Auto) 75.8 % (16.0-70.0) Estimat Glomerular Filtration 84 ML/MIN (>89) Rate Total Bilirubin 1.7 MG/DL (0.2-1.0) Direct Bilirubin 0.9 MG/DL (0.0-0.2) Aspartate Amino Transf 164 U/L (15-37) (AST/SGOT) Alanine Aminotransferase 116 U/L (12-78) (ALT/SGPT) Alkaline Phosphatase 125 U/L (45-117) Troponin I LESS THAN 0.02 NG/ML (0.02-0.05) Lipase 4081 U/L (73-393) Urine Turbidity HAZY (CLEAR) Urine Ketones 40 mg/dL (NEG) Urine Mucus FEW /lpf (OCC) Assessment and Plan Problem List: (1) Acute cholecystitis ICD Code: K81.0 Status: Acute (2) Acute pancreatitis ICD Code: K85.90 Status: Acute (3) Abdominal pain ICD Code: R10.9 Status: Acute (4) Acid reflux disease ICD Code: K21.9 Status: Acute Assessment and Plan Impression: Acute pancreatitis Elevated LFTsrule out gallstone pancreatitis Abdominal pain Acute cholecystitis Plan: Nothing by mouth. IV fluids. Pain control. Patient's case was discussed with general surgeon on-call by ER physician. Plans to wait on surgery for now to cool of the pancreas. Plan for OR in about 2 days or so. Nausea control. We'll try small dose of Restoril at nighttime for sleep. ID consult for antibiotic choice and therapy DVT prophylaxiswith SCD. GI prophylaxis on pantoprazole Code Status scd Discussed Condition With patient, ER MD Physician Certification 2 Midnight Certification Type: Admission for Inpatient Services Order for Inpatient Services The services are ordered in accordance with Medicare regulations or non- Medicare payer requirements, as applicable. In the case of services not specified as inpatient-only, they are appropriately provided as inpatient services in accordance with the 2-midnight benchmark. Estimated LOS (days): 3 days is the estimated time the patient will need to remain in the hospital, assuming treatment plan goals are met and no additional complications. Post-Hospital Plan: Home Problem Qualifiers (1) Acute pancreatitis: Qualified Code: K85.90 - Acute pancreatitis without infection or necrosis, unspecified pancreatitis type (2) Abdominal pain: Qualified Code: R10.11 - Right upper quadrant abdominal pain (3) Acid reflux disease: Qualified Code: K21.9 - Gastroesophageal reflux disease, esophagitis presence not specified Mejia Schuster MD Dec 13, 2016 06:49
[2016-12-13] MEDS: DILTIAZEM-CD 240 MG CAP ER PO SCH (08:53)
[2016-12-13] MEDS: ISOSORBIDE MONONITRATE 30 MG TAB PO SCH (08:53)
[2016-12-13] MEDS: PANTOPRAZOLE SOD 40 MG DELAYED RELEASE TAB PO SCH (08:53)
[2016-12-13] MEDS: SODIUM CHLORIDE 0.9% FLUSH 5 ML FLUSH FLUSH SCH ×2 (08:53→21:00)
--- NOTE | 2016-12-13 10:08 | RADRPT ---
EXAM DATE/TIME: 12/13/2016 10:14 [facility] COMPARISON: No previous studies available for comparison. INDICATIONS : MRI clearance. MEDICAL HISTORY : None. SURGICAL HISTORY : None. ENCOUNTER: Initial ACUITY: 1 day PAIN SCORE: 0/10 LOCATION: Bilateral orbits FINDINGS: Multiple views of both orbits were performed. There is no evidence of fracture involving the bony st ructures surrounding the orbits. The maxillary sinuses appear to be well aerated. No radiopaque bod ies are seen in the soft tissues. No MRI incompatible foreign body is identified. CONCLUSION: No MRI incompatible foreign body is identified. Robin Hopper MD FACR on December 13, 2016 at 10:06 Board Certified Radiologist. This report was verified electronically.
--- NOTE | 2016-12-13 14:00 | RADRPT ---
EXAM DATE/TIME: 12/13/2016 10:47 [facility] COMPARISON: US ABDOMEN - GALLBLADDER, December 12, 2016, 20:54. CT ABDOMEN & PELVIS W CONTRAST, December 12 7, 21:46. INDICATIONS: Abdominal pain. MEDICAL HISTORY: Gastroesophageal reflux disease. Hypertension. Chronic obstructive pulmonary disease. SURGICAL HISTORY: Coronary artery stent. ENCOUNTER: Initial ACUITY: 2 day PAIN SCORE: 3/10 LOCATION: Abdomen TECHNIQUE: Multiplanar, multisequence magnetic resonance imaging of the abdomen was performed. High-resolution 3D dataset was utilized to reconstruct maximum-intensity projection (MIP) images. FINDINGS: There is distention of the gallbladder as well as wall thickening and pericholecystic fluid suggestin g acute cholecystitis. There is significant wall thickening involving the gallbladder fundus raising the pos sibility of adenomyomatosis of the fundus of the gallbladder versus gallbladder mass. There is mild dilatation o f the common hepatic and common bile ducts with smooth tapering of the distal common bile duct. No filling defect is noted distally to suggest obstructing calculus. The common bile duct measures 13 mm in greatest dime nsion. Correlation with alkaline phosphatase and bilirubin levels is suggested to rule out biliary obstructi on. There are innumerable hepatic cysts which are stable in appearance compared to the previous examinations. Bilat eral renal cysts are also noted. The pancreatic duct is normal in appearance without dilatation or stricture. The pancreas is unremarkable. The spleen is normal. The adrenal glands are stable in appearance compared to the pre vious examination. Degenerative changes and scoliosis of the lumbar spine are noted. no bowel obstruction is noted. the abdominal aorta and inferior vena cava are unremarkable. No paraaortic, retroperitoneal or mesen teric lymphadenopathy is noted. CONCLUSION: 1. Distended thick walled gallbladder with extensive pericholecystic fluid suggesting acute cholecys titis until prove otherwise. Clinical correlation is recommended. 2. More significant focal wall thickening involving the gallbladder fundus suggesting adenomyomatosi s within the fundus versus gallbladder wall mass. 3. Mild prominence of the common hepatic and common bile duct with smooth tapering of the distal com mon bile duct as described above. No focal filing defect is noted within the distal common bile duct . 4. Innumerable hepatic cysts and bilateral renal cysts. 5. Degenerative changes and scoliosis of the thoracolumbar spine. Kemar Chavez MD on December 13, 2016 at 13:31 Board Certified Radiologist. This report was verified electronically.
--- NOTE | 2016-12-13 21:19 | MB ---
cc: JOSE SIMS M.D. DATE OF CONSULTATION: 12/13/2016 REASON FOR CONSULTATION: Cholelithiasis, cholecystitis, questionable choledocholithiasis with gallstone pancreatitis. HISTORY This is a 66-year-old gentleman who came to the emergency room late last night. He had exquisite pain in the right upper quadrant, midepigastric and chest area. He was put in the hospital, was in the emergency room where workup ensued which included ultrasound, CT scan, which revealed cholelithiasis, cholecystitis. He had elevated liver enzymes and elevated amylase as well. MRCP showed dilated common duct with a smooth tapering in the distal duct, could not rule out obstruction. Surgery was consulted to aid in the management of this issue. PAST HISTORY Significant for: 1. Hypertension. 2. Cardiac stent. 3. Questionable congestive heart failure. 4. Coronary artery disease. 5. Recently underwent a stress test which he did not have any abnormalities. No pulmonary issues. PAST SURGICAL HISTORY: 1. Umbilical hernia repair. ALLERGIES: NONE. MEDICATIONS: 1. Aspirin. 2. Atorvastatin 3. Diltiazem 4. Glucosamine 5. Isosorbide 6. Montelukast 10 milligrams a day. 7. Omeprazole. PHYSICAL EXAMINATION: On physical exam he is pleasant 66-year-old gentleman with blood pressure 112/57, respiratory rate 18, pulse of 71, 95% on room air. Neck: Supple without carotid bruits. Chest: Clear. Heart: Regular rate. Abdomen: Thin, soft. Surgical scar of the umbilicus with no umbilical hernia present. He is tender in the right upper, very deep palpation. No masses are appreciated. Extremities: Moves all extremities. No clubbing, cyanosis or edema. Neurologic: Alert, oriented. He is able to give me an adequate history. LABORATORY DATA He had a white count of 7, H&H of 15 and 44. Chemistry showed elevated liver enzymes, total bilirubin of 1.7, lipase was 4081. His troponin level was less than 0.02. Coags normal. Urinalysis clear. IMAGING STUDIES MRCP showed dilated common duct with smooth tapering of the distal duct. Radiology brought up the possibility of obstruction. He has some extensive pericholecystic fluid to suggest acute cholecystitis and some thickening of the gallbladder wall, questionable mass. Ultrasound and CT scan were done as well. Just last month he did have a myocardial perfusion scan to evaluate his cardiac function and this had no significant perfusion abnormalities. ASSESSMENT The patient is a 66-year-old gentleman with what appears to be gallstone pancreatitis. His symptomatology is somewhat improved. He does have a somewhat unusual common duct on the MRCP with slight dilatation and smooth tapering of the distal duct. This possibly could be from a recent passage of stone, but I will have the meat counter clerk evaluate to see if they think he would benefit from an ERCP. I will get some blood work in the morning. Hopefully his pancreatitis will resolve by Sunday, so we can proceed with cholecystectomy if clinically indicated at that time unless the meat counter clerk needs to do an ERCP at that time. This was discussed with his at the bedside and the patient. They appear to understand. Will follow. I made him n.p.o. for Sunday and recheck blood work in the morning. MD YUNG Ramírez/SILVIA /5:53 PM /8:57 PM
[2016-12-13] MEDS: MONTELUKAST SODIUM 10 MG TAB PO SCH (22:28)
--- NOTE | 2016-12-13 22:46 | EKG ---
Date Performed: 12/12/2016 Time Performed: 15:25:00 PTAGE: 66 years EKG: Sinus rhythm NORMAL ECG PREVIOUS TRACING : 11/17/2016 16.49 Compared to prior tracing no significant change DOCTOR: Jamie Mccain Interpretating Date/Time 12/13/2016 22:44:51
[2016-12-14] VITALS (8 sets, daily range): BP systolic 102–140; BP diastolic 61–78; PULSE 60–75; RESP 17–22; TEMP 97.8–98.7; O2SAT 95–100
[2016-12-14] MEDS: SODIUM CHLOR 0.9% 1000 ML INJ 1,000 ML IV SCH ×3 (00:30→12:05)
[2016-12-14] MEDS: PIPERACIL-TAZO 4.5 GM PREMIX 100 ML IV SCH ×4 (04:34→23:21)
[2016-12-14] MEDS: ISOSORBIDE MONONITRATE 30 MG TAB PO SCH (06:51)
[2016-12-14 07:36] LABS: AUTOMATED NEUTROPHIL # 3.7 TH/MM3 (1.8-7.7); BASOPHIL % 0.6 % (0.0-2.0); EOSINOPHIL # 0.3 TH/MM3 (0-0.4); EOSINOPHIL % 5.8 % (0.0-4.0); HEMATOCRIT 38.9 % (39.0-51.0); HEMO FLAGS DIFF FINAL; LYMPH % 20.9 % (9.0-44.0); LYMPHOCYTE # 1.2 TH/MM3 (1.0-4.8); MEAN CELL VOLUME 90.3 FL (80.0-100.0); MEAN CORPUSCULAR HEMOGLOBIN 31.2 PG (27.0-34.0); MEAN CORPUSCULAR HGB CONC 34.5 % (32.0-36.0); MONO % 7.4 % (0.0-8.0); NEUT % 65.3 % (16.0-70.0); PLATELET COUNT 151 TH/MM3 (150-450); RED BLOOD COUNT 4.31 MIL/MM3 (4.50-5.90); RED CELL DISTRIBUTION WIDTH 12.9 % (11.6-17.2); WHITE BLOOD COUNT 5.7 TH/MM3 (4.0-11.0)
[2016-12-14 08:12] LABS: ALKALINE PHOSPHATASE 159 U/L (45-117); ALT (GPT) 221 U/L (12-78); ANION GAP 8 MEQ/L (5-15); AST (GOT) 114 U/L (15-37); BICARBONATE 26.3 MEQ/L (21.0-32.0); BLOOD UREA NITROGEN 10 MG/DL (7-18); CHLORIDE 108 MEQ/L (98-107); GLOMERULAR FILTRATION RATE 78 ML/MIN (>89); POTASSIUM 4.1 MEQ/L (3.5-5.1); SODIUM (NA) 142 MEQ/L (136-145); TOTAL BILIRUBIN ADULT 1.2 MG/DL (0.2-1.0)
[2016-12-14 08:14] LABS: AMYLASE 142 U/L (25-115)
--- NOTE | 2016-12-14 08:44 | PD.CONS ---
HPI History of Present Illness This is a 66 year old male with history of CAD, COPD, hypertension, hyperlipidemia, and GERD presents with acute onset of epigastric mid abd pain that started almost 2 days ago, but progressively got worse in intensity associated with nausea but no vomiting. Initially the pain was diffused all over the abd, severe, he was curled up in a ball from the pain, so he stopped eating with some improvement, but the pain localized to RUQ and persisted, this was sharp burning in nature. He had similar episode a couple of weeks ago, and cardiac etiology ruled out, and symptoms were felt GERD related. He takes Omeprazole at home for GERD. He drinks beer every other day, but it has been 3 weeks since he had any drink. He denies vomiting, change in bowel, diarrhea, fever, chills or dark urine. US, CT suggestive of cholecystitis, MRCP Distended thick walled gallbladder with extensive pericholecystic fluid suggesting acute cholecystitis until prove otherwise. More significant focal wall thickening involving the gallbladder fundus suggesting adenomyomatosis within the fundus versus gallbladder wall mass. Mild prominence of the common hepatic and common bile duct with smooth tapering of the distal common bile duct as described above. No focal filing defect is noted within the distal common bile duct. Innumerable hepatic cysts and bilateral renal cysts. Lipase was 4081---->1212, AST 164---->114 [id number]--->221 [id number]---->159, bili 1.2. GS on the case, and there is a plan for cholecystectomy pending GI eval. Patient denies history of liver or gallbladder issues. (Pino Hodgson) PFSH Past Medical History Hypertension Hyperlipidemia COPD CAD GERD Past Surgical History Appendectomy BPH (Pino Hodgson) Coded Allergies: No Known Allergies (Unverified , 12/12/16) Medications Current Medications Medications (Trade) Dose Ordered Sig/Nehemias Route Start Time Stop Time Status Last Admin (NS 1000 ml Inj) 1,000 ml @ 125 mls/hr Q8H IV 12/13/16 00:30 12/13/16 16:30 (NS Flush) 2 ml UNSCH PRN FLUSH 12/13/16 01:30 (NS Flush) 2 ml BID FLUSH 12/13/16 09:00 (Zofran Inj) 4 mg Q6H PRN IVP 12/13/16 01:30 (Narcan Inj) 0.4 mg UNSCH PRN IV 12/13/16 01:30 Morphine Sulfate 2 mg 2 mg Q3H PRN IV PUSH 12/13/16 01:30 12/13/16 04:44 (Zosyn 4.5 Gm Premix) 100 ml @ 200 mls/hr Q6H IV 12/13/16 05:00 12/14/16 04:34 (Imdur) 30 mg DAILY@07 PO 12/13/16 07:00 12/14/16 06:51 (Singulair) 10 mg HS PO 12/13/16 21:00 12/13/16 22:28 (Protonix) 40 mg DAILY PO 12/13/16 09:00 12/13/16 08:53 (Cardizem Cd) 240 mg DAILY PO 12/13/16 09:00 12/13/16 08:53 Family History mother had ovarian cancer, father of heart issues, 3 sisters had gallbladder removed Social History Used to smoke cigarettes, quit 12 years ago. drinks every other day, but it has been 3 weeks since last drink Denies drug abuse. (Pino Hodgson) Review of Systems Constitutional: DENIES: Fever, Chills Endocrine: DENIES: Polyuria Eyes: DENIES: Double Vision Ears, nose, mouth, throat: DENIES: Hoarseness Respiratory: DENIES: Shortness of breath Cardiovascular: DENIES: Lower Extremity Edema, Claudication Gastrointestinal: COMPLAINS OF: Abdominal pain, Nausea, DENIES: Black stools, Bloody stools, Constipation, Diarrhea, Vomiting, Difficulty Swallowing, Anorexia , Odynophagia, Swelling of Abdomen, Heartburn, Hematemesis Genitourinary: DENIES: Hematuria Integumentary: DENIES: Jaundice Hematologic/lymphatic: DENIES: Bruising Immunologic/allergic: DENIES: Eczema Neurologic: DENIES: Abnormal gait Psychiatric: DENIES: Anxiety (Pino Hodgson) GI Exam Vitals I&O Vital Signs Date Time Temp Pulse Resp B/P Pulse Ox O2 Delivery O2 Flow Rate FiO2 12/14/16 04:52 60 12/14/16 04:30 98.4 62 21 102/61 98 12/14/16 00:00 97.8 75 22 107/63 100 12/13/16 20:15 98.1 74 18 100/56 95 Room Air 12/13/16 16:17 71 18 112/57 95 Room Air 12/13/16 11:17 86 18 160/79 96 Room Air Imaging Last Impressions Orbit X-Ray 12/13/16 0000 Signed Impressions: Service Date/Time: Tuesday, December 13, 2016 10:14 - CONCLUSION: No MRI incompatible foreign body is identified. Robin Hopper MD FACR Cholangiopancreatography MRI 12/13/16 0000 Signed Impressions: Service Date/Time: Tuesday, December 13, 2016 10:47 - CONCLUSION: 1. Distended thick walled gallbladder with extensive pericholecystic fluid suggesting acute cholecystitis until prove otherwise. Clinical correlation is recommended. 2. More significant focal wall thickening involving the gallbladder fundus suggesting adenomyomatosis within the fundus versus gallbladder wall mass. 3. Mild prominence of the common hepatic and common bile duct with smooth tapering of the distal common bile duct as described above. No focal filing defect is noted within the distal common bile duct. 4. Innumerable hepatic cysts and bilateral renal cysts. 5. Degenerative changes and scoliosis of the thoracolumbar spine. Kemar Chavez MD Abdomen/Pelvis CT 12/12/[id number] Signed Impressions: Service Date/Time: Monday, December 12, 2016 21:46 - CONCLUSION: 1. Gallbladder wall thickening with some stranding in the pericholecystic fat most characteristic of cholecystitis. No significant biliary ductal dilatation. 2. Multiple hepatic cysts and bilateral renal cysts. Robbin Wheat MD Gall Bladder Ultrasound 12/12/162042 Signed Impressions: Service Date/Time: Monday, December 12, 2016 20:54 - CONCLUSION: 1. Thickening of gallbladder wall to [address] correlation, findings are most characteristic of cholecystitis. No biliary ductal dilatation. No free fluid. 2. Multiple hepatic and right renal cysts. Robbin Wheat MD Laboratory Test 12/14/16 07:08 White Blood Count 5.7 TH/MM3 Red Blood Count 4.31 MIL/MM3 Hemoglobin 13.5 GM/DL Hematocrit 38.9 % Mean Corpuscular Volume 90.3 FL Mean Corpuscular Hemoglobin 31.2 PG Mean Corpuscular Hemoglobin 34.5 % Concent Red Cell Distribution Width 12.9 % Platelet Count 151 TH/MM3 Mean Platelet Volume 8.8 FL Neutrophils (%) (Auto) 65.3 % Lymphocytes (%) (Auto) 20.9 % Monocytes (%) (Auto) 7.4 % Eosinophils (%) (Auto) 5.8 % Basophils (%) (Auto) 0.6 % Neutrophils # (Auto) 3.7 TH/MM3 Lymphocytes # (Auto) 1.2 TH/MM3 Monocytes # (Auto) 0.4 TH/MM3 Eosinophils # (Auto) 0.3 TH/MM3 Basophils # (Auto) 0.0 TH/MM3 CBC Comment DIFF FINAL Differential Comment Sodium Level 142 MEQ/L Potassium Level 4.1 MEQ/L Chloride Level 108 MEQ/L Carbon Dioxide Level 26.3 MEQ/L Anion Gap 8 MEQ/L Blood Urea Nitrogen 10 MG/DL Creatinine 0.96 MG/DL Estimat Glomerular Filtration 78 ML/MIN Rate Random Glucose 95 MG/DL Calcium Level 8.3 MG/DL Total Bilirubin 1.2 MG/DL Aspartate Amino Transf 114 U/L (AST/SGOT) Alanine Aminotransferase 221 U/L (ALT/SGPT) Alkaline Phosphatase 159 U/L Total Protein 6.0 GM/DL Albumin 2.9 GM/DL Amylase Level 142 U/L Lipase 1212 U/L Physical Examination HEENT: normocephalic; atraumatic; no jaundice. Throat is clear. NECK: Neck is supple, no JVD, no lymphadenopathy. CHEST: Chest is clear to auscultation and percussion. CARDIAC: Regular rate and rhythm with no murmur gallop or rubs. ABDOMEN: Soft, nondistended,epigastric tenderness; no hepatosplenomegaly; bowel sounds are present in all four quadrants. EXTREMITIES: No clubbing, cyanosis, or edema. SKIN: Normal; no rash; no jaundice. CONSUMER INSIGHT MANAGER: No focal deficits; alert and oriented times three. (Pino Hodgson) Assessment and Plan Plan - Dilated CBD/elevated LFTs/sever abd pain X 2 days- Etiology unclear, could be passing stone, but other causes need to be ruled out Lipase was 4081---->1212, AST 164---->114 [id number]--->221 [id number]---->159, bili 1.2 , US, CT suggestive of cholecystitis, MRCP Distended thick walled gallbladder with extensive pericholecystic fluid suggesting acute cholecystitis until prove otherwise. More significant focal wall thickening involving the gallbladder fundus suggesting adenomyomatosis within the fundus versus gallbladder wall mass. Mild prominence of the common hepatic and common bile duct with smooth tapering of the distal common bile duct as described above. No focal filing defect is noted within the distal common bile duct. Innumerable hepatic cysts and bilateral renal cysts. - Gallstone pancreatitis- as above, GS on the case, and there is a plan for cholecystectomy pending GI eval. Patient denies history of liver or gallbladder issues. - Chronic GERD- PPI - CAD, COPD, hypertension, hyperlipidemia per attending Plan: - NPO - ERCP today - Monitor labs - Aggressive hydration - Pain meds - GS on the case - Supportive care - Patient seen and examined by Dr. Gaines and myself and this note is written on his behalf. (Pino Hodgson) Physician Comments Seen and examined with Ms. Rema BOLDEN, imaging studies reviewed. ERCP today followed by cholecystectomy. Monitor labs. Will follow. Ti aguilar (Jess Gaines MD) Pino Hodgson Dec 14, 2016 08:44 Jess Gaines MD Dec 14, 2016 16:32
[2016-12-14] MEDS: DILTIAZEM-CD 240 MG CAP ER PO SCH (08:55)
[2016-12-14] MEDS: PANTOPRAZOLE SOD 40 MG DELAYED RELEASE TAB PO SCH (08:55)
[2016-12-14] MEDS: SODIUM CHLORIDE 0.9% FLUSH 5 ML FLUSH FLUSH SCH ×2 (09:00→21:00)
[2016-12-14] MEDS ORDERED: PROPOFOL 200 MG/20 ML AMP IV ONE (11:00)
[2016-12-14] MEDS ORDERED: IOHEXOL 350 MG/ML 100 ML BTL (for RAD DIAG) OTHER ONE (11:01)
[2016-12-14] MEDS ORDERED: DO NOT ADM ANY ANTICOAGULANT DRUGS XX PRN (12:00)
--- NOTE | 2016-12-14 12:22 | RADRPT ---
EXAM DATE/TIME: 12/14/2016 11:01 [facility] COMPARISON: No previous studies available for comparison. INDICATIONS: Attempted ERCP, failed. MEDICAL HISTORY: Cholelithiasis. SURGICAL HISTORY: None. ENCOUNTER: Initial ACUITY: 1 day PAIN SCORE: Non-responsive. LOCATION: Abdomen FINDINGS: A limited view of the right upper quadrant was performed intraoperatively. There is opacification of the main pancreatic duct which is not significantly dilated. No biliary ductal contrast is identifi ed. CONCLUSION: 1. Opacification of the non-dilated pancreatic duct. Kemar Chavez MD on December 14, 2016 at 12:10 Board Certified Radiologist. This report was verified electronically.
--- NOTE | 2016-12-14 14:03 | HHI.PR ---
Subjective Remarks Patient seen in follow-up for pancreatitis, cholecystitis, cholelithiasis. He is status post ERCP. Case discussed with Dr. Holguin, he was unable to get into the common bile duct. Patient reports persistent right upper quadrant pain radiating to the right upper back. He denies nausea or vomiting currently. Pain medication is helping. Objective Vitals Vital Signs Date Time Temp Pulse Resp B/P Pulse Ox O2 Delivery O2 Flow Rate FiO2 12/14/16 13:30 97.6 67 16 148/85 95 Room Air 12/14/16 13:00 68 15 137/83 94 Room Air 12/14/16 12:30 66 15 132/80 94 Room Air 12/14/16 12:15 97.8 64 15 127/76 95 Room Air 12/14/16 12:00 63 15 125/74 94 Room Air 12/14/16 11:45 68 14 123/76 98 Nasal Cannula 2 12/14/16 11:40 98.3 70 14 118/73 95 Nasal Cannula 2 12/14/16 09:30 98.1 64 18 112/61 96 12/14/16 08:00 98.1 64 20 119/67 96 12/14/16 04:52 60 12/14/16 04:30 98.4 62 21 102/61 98 12/14/16 00:00 97.8 75 22 107/63 100 12/13/16 20:15 98.1 74 18 100/56 95 Room Air 12/13/16 16:17 71 18 112/57 95 Room Air I/O 12/13/16 12/13/16 12/13/16 12/14/16 12/14/16 12/14/16 07:00 15:00 23:00 07:00 15:00 23:00 Intake Total 600 ml Output Total 25 ml Balance 575 ml Intake IV Total 100 ml Other 500 ml Output Estimated Blood Loss 25 ml Result Diagram: 12/14/16 0708 12/14/16 0708 Imaging Last Impressions Abdomen X-Ray 12/14/16 0000 Signed Impressions: Service Date/Time: December 11:01 - CONCLUSION: 1. Opacification of the non-dilated pancreatic duct. Kemar Chavez MD Orbit X-Ray 12/13/16 0000 Signed Impressions: Service Date/Time: Tuesday, December 13, 2016 10:14 - CONCLUSION: No MRI incompatible foreign body is identified. Robin Hopper MD FACR Cholangiopancreatography MRI 12/13/16 0000 Signed Impressions: Service Date/Time: Tuesday, December 13, 2016 10:47 - CONCLUSION: 1. Distended thick walled gallbladder with extensive pericholecystic fluid suggesting acute cholecystitis until prove otherwise. Clinical correlation is recommended. 2. More significant focal wall thickening involving the gallbladder fundus suggesting adenomyomatosis within the fundus versus gallbladder wall mass. 3. Mild prominence of the common hepatic and common bile duct with smooth tapering of the distal common bile duct as described above. No focal filing defect is noted within the distal common bile duct. 4. Innumerable hepatic cysts and bilateral renal cysts. 5. Degenerative changes and scoliosis of the thoracolumbar spine. Kemar Chavez MD Abdomen/Pelvis CT 12/12/162052 Signed Impressions: Service Date/Time: Monday, December 12, 2016 21:46 - CONCLUSION: 1. Gallbladder wall thickening with some stranding in the pericholecystic fat most characteristic of cholecystitis. No significant biliary ductal dilatation. 2. Multiple hepatic cysts and bilateral renal cysts. Robbin Wheat MD Gall Bladder Ultrasound 12/12/162042 Signed Impressions: Service Date/Time: Monday, December 12, 2016 20:54 - CONCLUSION: 1. Thickening of gallbladder wall to [address] correlation, findings are most characteristic of cholecystitis. No biliary ductal dilatation. No free fluid. 2. Multiple hepatic and right renal cysts. Robbin Wheat MD Objective Remarks GENERAL: This is a well-nourished, well-developed patient, in no apparent distress. CARDIOVASCULAR: Normal rate and regular rhythm without murmurs, gallops, or rubs. RESPIRATORY: Good respiratory efforts. Breath sounds equal and clear to auscultation bilaterally. GASTROINTESTINAL: Abdomen soft,, non-distended, mild tenderness to palpation over the right upper quadrant.. Normal active bowel sounds MUSCULOSKELETAL: Extremities without cyanosis, or edema. NEURO: Alert & Oriented x4 to person, place, time, situation. Moves all ext x4 PSYCH: Appropriate mood and affect. Procedures ERCP A/P Problem List: (1) Acute cholecystitis ICD Code: K81.0 Status: Acute (2) Acute pancreatitis ICD Code: K85.90 Status: Acute (3) Abdominal pain ICD Code: R10.9 Status: Acute (4) Acid reflux disease ICD Code: K21.9 Status: Acute Assessment and Plan 66-year-old male admitted with: Acute pancreatitis: Possible that he passed a stone. Lipase level decreasing. - Continue supportive care. He is status post ERCP. Discussed with Dr. Holguin, he could not get into the common bile duct. There is plan for cholecystectomy per general surgery, intraoperative cholangiogram can be done at that time if indicated. - Continue pain control. Increase morphine for better pain control per the patient's request. - Continue supportive care with IV fluid, NPO Choledocholithiasis and cholecystitis: - Appreciate general surgery following. Plan for cholecystectomy once pancreatitis resolves. Elevated LFTs: Secondary to above. Continue to monitor. Chronic GERD: Continue PPI Continue home medications for chronic conditions including CAD, hypertension and hyperlipidemia. GI prophylaxis: PPI. Stool softener PRN constipation. DVT PPx: SCDs Problem Qualifiers (1) Acute pancreatitis: Qualified Code: K85.90 - Acute pancreatitis without infection or necrosis, unspecified pancreatitis type (2) Abdominal pain: Qualified Code: R10.11 - Right upper quadrant abdominal pain (3) Acid reflux disease: Qualified Code: K21.9 - Gastroesophageal reflux disease, esophagitis presence not specified Darrel Adkins MD Dec 14, 2016 14:03
[2016-12-14] MEDS: MORPHINE SULFATE 4 MG/ML INJ IV PUSH PRN ×3 (14:41→20:38)
--- NOTE | 2016-12-14 16:50 | HHI.PR ---
Subjective Subjective Notes DAILY PROGRESS NOTE FOR SURGICAL ATTENDING, DR. ROBBIN CELIS Objective Vitals/I&O Vital Signs Date Time Temp Pulse Resp B/P Pulse Ox O2 Delivery O2 Flow Rate FiO2 12/14/16 15:33 95 21 12/14/16 13:30 97.6 67 16 148/85 Room Air 12/14/16 11:45 2 Labs Laboratory Tests Test 12/14/16 07:08 White Blood Count 5.7 Red Blood Count 4.31 Hemoglobin 13.5 Hematocrit 38.9 Mean Corpuscular Volume 90.3 Mean Corpuscular Hemoglobin 31.2 Mean Corpuscular Hemoglobin 34.5 Concent Red Cell Distribution Width 12.9 Platelet Count 151 Mean Platelet Volume 8.8 Neutrophils (%) (Auto) 65.3 Lymphocytes (%) (Auto) 20.9 Monocytes (%) (Auto) 7.4 Eosinophils (%) (Auto) 5.8 Basophils (%) (Auto) 0.6 Neutrophils # (Auto) 3.7 Lymphocytes # (Auto) 1.2 Monocytes # (Auto) 0.4 Eosinophils # (Auto) 0.3 Basophils # (Auto) 0.0 CBC Comment DIFF FINAL Differential Comment Sodium Level 142 Potassium Level 4.1 Chloride Level 108 Carbon Dioxide Level 26.3 Anion Gap 8 Blood Urea Nitrogen 10 Creatinine 0.96 Estimat Glomerular Filtration 78 Rate Random Glucose 95 Calcium Level 8.3 Total Bilirubin 1.2 Aspartate Amino Transf 114 (AST/SGOT) Alanine Aminotransferase 221 (ALT/SGPT) Alkaline Phosphatase 159 Total Protein 6.0 Albumin 2.9 Amylase Level 142 Lipase 1212 Radiology Last Impressions Abdomen X-Ray 12/14/16 0000 Signed Impressions: Service Date/Time: December 11:01 - CONCLUSION: 1. Opacification of the non-dilated pancreatic duct. Kemar Chavez MD Orbit X-Ray 12/13/16 0000 Signed Impressions: Service Date/Time: Tuesday, December 13, 2016 10:14 - CONCLUSION: No MRI incompatible foreign body is identified. Robin Hopper MD FACR Cholangiopancreatography MRI 12/13/16 0000 Signed Impressions: Service Date/Time: Tuesday, December 13, 2016 10:47 - CONCLUSION: 1. Distended thick walled gallbladder with extensive pericholecystic fluid suggesting acute cholecystitis until prove otherwise. Clinical correlation is recommended. 2. More significant focal wall thickening involving the gallbladder fundus suggesting adenomyomatosis within the fundus versus gallbladder wall mass. 3. Mild prominence of the common hepatic and common bile duct with smooth tapering of the distal common bile duct as described above. No focal filing defect is noted within the distal common bile duct. 4. Innumerable hepatic cysts and bilateral renal cysts. 5. Degenerative changes and scoliosis of the thoracolumbar spine. Kemar Chavez MD Abdomen/Pelvis CT 12/12/162052 Signed Impressions: Service Date/Time: Monday, December 12, 2016 21:46 - CONCLUSION: 1. Gallbladder wall thickening with some stranding in the pericholecystic fat most characteristic of cholecystitis. No significant biliary ductal dilatation. 2. Multiple hepatic cysts and bilateral renal cysts. Robbin Wheat MD Gall Bladder Ultrasound 12/12/162042 Signed Impressions: Service Date/Time: Monday, December 12, 2016 20:54 - CONCLUSION: 1. Thickening of gallbladder wall to [address] correlation, findings are most characteristic of cholecystitis. No biliary ductal dilatation. No free fluid. 2. Multiple hepatic and right renal cysts. Robbin Wheat MD Cardiovascular: Regular Abdomen: Other (mild right upper quadrant tenderness), BS normal Extremities: Perfused A/P Problem List: (1) Acute cholecystitis (2) Acute pancreatitis (3) Abdominal pain (4) Acid reflux disease (5) Elevated liver enzymes (6) Acute gallstone pancreatitis (7) Abnormal findings on diagnostic imaging of liver and biliary tract Assessment and Plan 66-year-old gentleman who had an episode of gallstone pancreatitis appears to be resolving somewhat. On his MRCP his common duct had a tapered affect Dr. Jess Barcenas attempted do an ERCP which was unsuccessful Review the case with Dr. Barcenas We'll proceed with laparoscopic cholecystectomy with intraoperative cholangiogram tomorrow discussed in detail with the patient in the Problem Qualifiers (1) Acute pancreatitis: Qualified Code: K85.90 - Acute pancreatitis without infection or necrosis, unspecified pancreatitis type (2) Abdominal pain: Qualified Code: R10.11 - Right upper quadrant abdominal pain (3) Acid reflux disease: Qualified Code: K21.9 - Gastroesophageal reflux disease, esophagitis presence not specified Robbin Celis MD Dec 14, 2016 16:50
[2016-12-14] MEDS: ONDANSETRON HCL 4 MG/2 ML VIAL IVP PRN (20:38)
[2016-12-14] MEDS: MONTELUKAST SODIUM 10 MG TAB PO SCH (20:39)
[2016-12-15] VITALS: BP 136/72; PULSE 67; RESP 17; TEMP 97.8; O2SAT 98
[2016-12-15] MEDS: SODIUM CHLOR 0.9% 1000 ML INJ 1,000 ML IV SCH ×3 (00:51→18:02)
[2016-12-15 04:00] VITALS: BP 142/72; PULSE 67; RESP 17; TEMP 98.2; O2SAT 96
[2016-12-15 05:27] LABS: HEMATOCRIT 40.3 % (39.0-51.0); MEAN CORPUSCULAR HEMOGLOBIN 31.3 PG (27.0-34.0); MEAN CORPUSCULAR HGB CONC 34.8 % (32.0-36.0); PLATELET COUNT 157 TH/MM3 (150-450); RED BLOOD COUNT 4.48 MIL/MM3 (4.50-5.90); RED CELL DISTRIBUTION WIDTH 13.1 % (11.6-17.2); REVIEW FLAG FINAL; WHITE BLOOD COUNT 6.6 TH/MM3 (4.0-11.0)
[2016-12-15 05:52] LABS: BICARBONATE 27.2 MEQ/L (21.0-32.0); INDIRECT BILIRUBIN 0.8 MG/DL (0.0-0.8); POTASSIUM 3.3 MEQ/L (3.5-5.1); TOTAL BILIRUBIN ADULT 1.4 MG/DL (0.2-1.0)
[2016-12-15] MEDS: PIPERACIL-TAZO 4.5 GM PREMIX 100 ML IV SCH ×5 (05:53→21:51)
[2016-12-15] MEDS: ISOSORBIDE MONONITRATE 30 MG TAB PO SCH (06:45)
[2016-12-15 08:00] VITALS: BP 116/71; PULSE 74; RESP 16; TEMP 97.4; O2SAT 97
[2016-12-15] MEDS ORDERED: BUPIVACAINE/EPINEPHRINE 0.25% PF 30 ML VIAL ONE (08:06)
[2016-12-15] MEDS: PANTOPRAZOLE SOD 40 MG DELAYED RELEASE TAB PO SCH (08:48)
[2016-12-15] MEDS: DILTIAZEM-CD 240 MG CAP ER PO SCH (08:48)
[2016-12-15] MEDS: MORPHINE SULFATE 4 MG/ML INJ IV PUSH PRN ×2 (08:51→22:01)
[2016-12-15] MEDS: SODIUM CHLORIDE 0.9% FLUSH 5 ML FLUSH FLUSH SCH ×2 (08:53→21:00)
[2016-12-15] MEDS ORDERED: POTASSIUM CHLOR 20 MEQ PREMIX 100 ML IV ONE (09:00)
[2016-12-15] MEDS: LACTATED RINGER'S 1000 ML IV SCH ×2 (10:30→21:54)
[2016-12-15] MEDS ORDERED: FAMOTIDINE 20 MG/2 ML VIAL ONE (11:01)
[2016-12-15] MEDS ORDERED: MIDAZOLAM HCL 2 MG/2 ML VIAL ONE (11:01)
[2016-12-15] MEDS ORDERED: DICLOFENAC SODIUM 37.5 MG/ML VIAL IV PUSH ONE (11:08)
[2016-12-15] MEDS ORDERED: ONDANSETRON HCL 4 MG/2 ML VIAL IV PUSH ONE (12:00)
[2016-12-15] MEDS ORDERED: NEOSTIGMINE 3 MG/3 ML SYR IV ONE (12:00)
[2016-12-15] MEDS ORDERED: ePHEDrine/NS 25 MG/5 ML SYR IV ONE (12:00)
[2016-12-15] MEDS ORDERED: PROPOFOL 200 MG/20 ML AMP IV ONE (12:00)
[2016-12-15] MEDS ORDERED: PIPERACILLIN TAZO IV ONE (12:00)
[2016-12-15] MEDS ORDERED: NORC5TAB PO (12:51)
--- NOTE | 2016-12-15 12:55 | HHI.PR ---
cc: Robbin Celis MD Immediate Post Op Note Procedure Date: Dec 15, 2016 Pre Op Diagnosis: (1) Acute cholecystitis (2) Acute pancreatitis (3) Elevated liver enzymes (4) Abnormal findings on diagnostic imaging of liver and biliary tract (5) Acute gallstone pancreatitis Post Op Diagnosis: (1) Abdominal pain (2) Acid reflux disease (3) Acute cholecystitis (4) Acute pancreatitis (5) Elevated liver enzymes (6) Acute gallstone pancreatitis (7) S/P laparoscopic cholecystectomy Surgeon: Robbin Celis Occupational Therapy Assistant(s): Please refer to the record Procedure: Laparoscopic cholecystectomy with intraoperative cholangiogram Findings: Chronically inflamed and acutely inflamed gallbladder Contrast flowed through a slightly compressed from inflamed pancreas distal common duct no stones were seen Specimen(s) removed: Gallbladder Estimated blood loss: Minimal Anesthesia: General Drains: None IVF Patient to: PACU Patient Condition: Good Implant/Devices: SEE IMPLANT LOG (if applicable) Date/Time of Procedure: SEE SURGICAL CARE RECORD Robbin Celis MD Dec 15, 2016 12:55
[2016-12-15] MEDS ORDERED: fentaNYL CITRATE 250 MCG/5 ML AMP ONE (13:02)
--- NOTE | 2016-12-15 14:14 | HHI.GIFU ---
Subjective Remarks Resting in bed. Just got back from having cholecystectomy. Some indigestion. No n/v. (Ct Wang) Objective Vitals I&O Vital Signs Date Time Temp Pulse Resp B/P Pulse Ox O2 Delivery O2 Flow Rate FiO2 12/15/16 13:45 84 16 136/76 96 Nasal Cannula 2 12/15/16 13:30 74 16 141/75 97 Nasal Cannula 2 12/15/16 13:15 74 16 135/77 96 Nasal Cannula 2 12/15/16 13:00 106 16 137/84 97 Nasal Cannula 2 12/15/16 12:57 97.7 108 16 141/81 96 Nasal Cannula 2 12/15/16 08:00 97.4 74 16 116/71 97 12/15/16 04:00 98.2 67 17 142/72 96 12/15/16 00:00 97.8 67 17 136/72 98 12/14/16 20:00 98.1 72 17 140/76 97 12/14/16 15:33 95 21 I/O 12/14/16 12/14/16 12/14/16 12/15/16 12/15/16 12/15/16 07:00 15:00 23:00 07:00 15:00 23:00 Intake Total 600 ml 1003 ml 794 ml 20 ml Output Total 25 ml Balance 575 ml 1003 ml 794 ml 20 ml Intake Oral 240 ml 0 ml IV Total 100 ml 763 ml 794 ml 20 ml Other 500 ml Output Estimated Blood Loss 25 ml # Voids 2 3 Laboratory Laboratory Tests Test 12/15/16 04:20 White Blood Count 6.6 Red Blood Count 4.48 Hemoglobin 14.0 Hematocrit 40.3 Mean Corpuscular Volume 90.0 Mean Corpuscular Hemoglobin 31.3 Mean Corpuscular Hemoglobin 34.8 Concent Red Cell Distribution Width 13.1 Platelet Count 157 Mean Platelet Volume 8.9 Sodium Level 142 Potassium Level 3.3 Chloride Level 105 Carbon Dioxide Level 27.2 Anion Gap 10 Blood Urea Nitrogen 5 Creatinine 0.83 Estimat Glomerular Filtration 92 Rate Random Glucose 79 Calcium Level 8.2 Total Bilirubin 1.4 Direct Bilirubin 0.6 Indirect Bilirubin 0.8 Aspartate Amino Transf 218 (AST/SGOT) Alanine Aminotransferase 302 (ALT/SGPT) Alkaline Phosphatase 324 Total Protein 6.5 Albumin 3.1 Amylase Level 157 Lipase 2074 Imaging Last Impressions Abdomen X-Ray 12/14/16 0000 Signed Impressions: Service Date/Time: December 11:01 - CONCLUSION: 1. Opacification of the non-dilated pancreatic duct. Kemar Chavez MD Orbit X-Ray 12/13/16 0000 Signed Impressions: Service Date/Time: Tuesday, December 13, 2016 10:14 - CONCLUSION: No MRI incompatible foreign body is identified. Robin Hopper MD FACR Cholangiopancreatography MRI 12/13/16 0000 Signed Impressions: Service Date/Time: Tuesday, December 13, 2016 10:47 - CONCLUSION: 1. Distended thick walled gallbladder with extensive pericholecystic fluid suggesting acute cholecystitis until prove otherwise. Clinical correlation is recommended. 2. More significant focal wall thickening involving the gallbladder fundus suggesting adenomyomatosis within the fundus versus gallbladder wall mass. 3. Mild prominence of the common hepatic and common bile duct with smooth tapering of the distal common bile duct as described above. No focal filing defect is noted within the distal common bile duct. 4. Innumerable hepatic cysts and bilateral renal cysts. 5. Degenerative changes and scoliosis of the thoracolumbar spine. Kemar Chavez MD Abdomen/Pelvis CT 12/12/162052 Signed Impressions: Service Date/Time: Monday, December 12, 2016 21:46 - CONCLUSION: 1. Gallbladder wall thickening with some stranding in the pericholecystic fat most characteristic of cholecystitis. No significant biliary ductal dilatation. 2. Multiple hepatic cysts and bilateral renal cysts. Robbin Wheat MD Gall Bladder Ultrasound 12/12/162042 Signed Impressions: Service Date/Time: Monday, December 12, 2016 20:54 - CONCLUSION: 1. Thickening of gallbladder wall to [address] correlation, findings are most characteristic of cholecystitis. No biliary ductal dilatation. No free fluid. 2. Multiple hepatic and right renal cysts. Robbin Wheat MD Physical Exam HEENT: Normocephalic; atraumatic; no jaundice. CHEST: CTA CARDIAC: RRR ABDOMEN: Soft, rounded, nondistended, nontender; no hepatosplenomegaly; bowel sounds are present in all four quadrants. bandaids d/i EXTREMITIES: No clubbing, cyanosis, or edema. SKIN: Normal; no rash; no jaundice. PRECISION LATHE OPERATOR: No focal deficits; alert and oriented times three. (Ct Wang) Assessment and Plan Plan ASSESSMENT: - Abdominal pain with dilated CBD/elevated LFTs. US, CT suggestive of cholecystitis, MRCP Distended thick walled gallbladder with extensive pericholecystic fluid suggesting acute cholecystitis until prove otherwise. More significant focal wall thickening involving the gallbladder fundus suggesting adenomyomatosis within the fundus versus gallbladder wall mass. Mild prominence of the common hepatic and common bile duct with smooth tapering of the distal common bile duct as described above. No focal filing defect is noted within the distal common bile duct. Innumerable hepatic cysts and bilateral renal cysts. S/P ERCP (12/14/16)----> normal pancreatogram, unable to access the bile duct. S/P Lap. Katius[place]. LFTs slightly increased today, T. Bili 1.4, AST 218, ALT 302, Alk Phosph. 324. Clinically doing well other than some indigestion. Lipase 2073 - Gallstone pancreatitis. Lipase 2073 S/P Lap. [place]. POD #0 - Chronic GERD- PPI - CAD, COPD, hypertension, hyperlipidemia per attending Plan: - Clear liquids - PPI - S/P Lap. [place]ius[place] - LFT, Lipase in am - Supportive care - Patient seen and examined by Dr. Gaines and myself and this note is written on his behalf. (Ct Wang) Physician Comments Seen and examined, s/p lap katiuska. Report-p. Hopefully cholangiogram done during surgery. Previously discussed with Dr. Celis.Monitor LFTs. Will follow. ( Jess Gaines MD) Ct Wang Dec 15, 2016 14:13 Jess Gaines MD Dec 15, 2016 16:57
[2016-12-15 14:17] VITALS: BP 142/72; PULSE 69; RESP 16; TEMP 96.6; O2SAT 95
[2016-12-15] MEDS: ONDANSETRON HCL 4 MG/2 ML VIAL IVP PRN (14:35)
--- NOTE | 2016-12-15 15:21 | HHI.PR ---
Subjective Remarks Patient is seen after a laparoscopic cholecystectomy. Reports that he is feeling better. Nausea resolved. Trying to eat a sandwich. Objective Vitals Vital Signs Date Time Temp Pulse Resp B/P Pulse Ox O2 Delivery O2 Flow Rate FiO2 12/15/16 13:45 84 16 136/76 96 Nasal Cannula 2 12/15/16 13:30 74 16 141/75 97 Nasal Cannula 2 12/15/16 13:15 74 16 135/77 96 Nasal Cannula 2 12/15/16 13:00 106 16 137/84 97 Nasal Cannula 2 12/15/16 12:57 97.7 108 16 141/81 96 Nasal Cannula 2 12/15/16 08:00 97.4 74 16 116/71 97 12/15/16 04:00 98.2 67 17 142/72 96 12/15/16 00:00 97.8 67 17 136/72 98 12/14/16 20:00 98.1 72 17 140/76 97 12/14/16 15:33 95 21 I/O 12/14/16 12/14/16 12/14/16 12/15/16 12/15/16 12/15/16 07:00 15:00 23:00 07:00 15:00 23:00 Intake Total 600 ml 1003 ml 794 ml 20 ml Output Total 25 ml Balance 575 ml 1003 ml 794 ml 20 ml Intake Oral 240 ml 0 ml IV Total 100 ml 763 ml 794 ml 20 ml Other 500 ml Output Estimated Blood Loss 25 ml # Voids 2 3 Result Diagram: 12/15/16 0420 12/15/16 0420 Imaging Last Impressions Abdomen X-Ray 12/14/16 0000 Signed Impressions: Service Date/Time: December 11:01 - CONCLUSION: 1. Opacification of the non-dilated pancreatic duct. Kemar Chavez MD Orbit X-Ray 12/13/16 0000 Signed Impressions: Service Date/Time: Tuesday, December 13, 2016 10:14 - CONCLUSION: No MRI incompatible foreign body is identified. Robin Hopper MD FACR Cholangiopancreatography MRI 12/13/16 0000 Signed Impressions: Service Date/Time: Tuesday, December 13, 2016 10:47 - CONCLUSION: 1. Distended thick walled gallbladder with extensive pericholecystic fluid suggesting acute cholecystitis until prove otherwise. Clinical correlation is recommended. 2. More significant focal wall thickening involving the gallbladder fundus suggesting adenomyomatosis within the fundus versus gallbladder wall mass. 3. Mild prominence of the common hepatic and common bile duct with smooth tapering of the distal common bile duct as described above. No focal filing defect is noted within the distal common bile duct. 4. Innumerable hepatic cysts and bilateral renal cysts. 5. Degenerative changes and scoliosis of the thoracolumbar spine. Kemar Chavez MD Abdomen/Pelvis CT 12/12/162052 Signed Impressions: Service Date/Time: Monday, December 12, 2016 21:46 - CONCLUSION: 1. Gallbladder wall thickening with some stranding in the pericholecystic fat most characteristic of cholecystitis. No significant biliary ductal dilatation. 2. Multiple hepatic cysts and bilateral renal cysts. Robbin Wheat MD Gall Bladder Ultrasound 12/12/162042 Signed Impressions: Service Date/Time: Monday, December 12, 2016 20:54 - CONCLUSION: 1. Thickening of gallbladder wall to [address] correlation, findings are most characteristic of cholecystitis. No biliary ductal dilatation. No free fluid. 2. Multiple hepatic and right renal cysts. Robbin Wheat MD Objective Remarks GENERAL: This is a well-nourished, well-developed patient, in no apparent distress. CARDIOVASCULAR: Normal rate and regular rhythm without murmurs, gallops, or rubs. RESPIRATORY: Good respiratory efforts. Breath sounds equal and clear to auscultation bilaterally. GASTROINTESTINAL: Abdomen soft, non-distended, laparoscopic site dressings intact. MUSCULOSKELETAL: Extremities without cyanosis, or edema. NEURO: Alert & Oriented x4 to person, place, time, situation. Moves all ext x4 PSYCH: Appropriate mood and affect. Procedures ERCP A/P Problem List: (1) Acute cholecystitis ICD Code: K81.0 Status: Acute (2) Acute pancreatitis ICD Code: K85.90 Status: Acute (3) Abdominal pain ICD Code: R10.9 Status: Acute (4) Acid reflux disease ICD Code: K21.9 Status: Acute Assessment and Plan 66-year-old male admitted with: Acute pancreatitis: Possible that he passed a stone. Lipase level slightly increased today - Continue supportive care. He is status post ERCP. Discussed with Dr. Holguin, he could not get into the common bile duct. - S/P lap cholecystectomy - Clear liquid diet per GI. - Follow Lipase and LFT in AM. Choledocholithiasis and cholecystitis: - Appreciate general surgery following. POD O lap davidson. Elevated LFTs: Secondary to above. - Follow up lipase and LFT in AM. Chronic GERD: Continue PPI Continue home medications for chronic conditions including CAD, hypertension and hyperlipidemia. GI prophylaxis: PPI. Stool softener PRN constipation. DVT PPx: SCDs Discharge Planning If stable tomorrow, can be discharged home. Problem Qualifiers (1) Acute pancreatitis: Qualified Code: K85.90 - Acute pancreatitis without infection or necrosis, unspecified pancreatitis type (2) Abdominal pain: Qualified Code: R10.11 - Right upper quadrant abdominal pain (3) Acid reflux disease: Qualified Code: K21.9 - Gastroesophageal reflux disease, esophagitis presence not specified Darrel Adkins MD Dec 15, 2016 15:21
[2016-12-15 17:47] VITALS: O2SAT 96
[2016-12-15 20:00] VITALS: BP 132/70; PULSE 65; RESP 20; TEMP 97.6; O2SAT 96
[2016-12-15] MEDS: MONTELUKAST SODIUM 10 MG TAB PO SCH (21:51)
[2016-12-16] VITALS: BP 127/73; PULSE 73; RESP 18; TEMP 99.1; O2SAT 94
[2016-12-16 04:00] VITALS: BP 127/72; PULSE 86; RESP 18; TEMP 97.3; O2SAT 94
[2016-12-16] MEDS: MORPHINE SULFATE 4 MG/ML INJ IV PUSH PRN ×2 (04:49→08:43)
[2016-12-16] MEDS: PIPERACIL-TAZO 4.5 GM PREMIX 100 ML IV SCH ×4 (04:51→23:14)
[2016-12-16 05:25] LABS: INDIRECT BILIRUBIN 0.7 MG/DL (0.0-0.8)
[2016-12-16] MEDS: SODIUM CHLOR 0.9% 1000 ML INJ 1,000 ML IV SCH ×2 (06:20→08:39)
[2016-12-16] MEDS: ISOSORBIDE MONONITRATE 30 MG TAB PO SCH (06:33)
[2016-12-16 08:00] VITALS: BP 129/73; PULSE 79; RESP 17; TEMP 96.6; O2SAT 94
[2016-12-16] MEDS: PANTOPRAZOLE SOD 40 MG DELAYED RELEASE TAB PO SCH (08:39)
[2016-12-16] MEDS: SODIUM CHLORIDE 0.9% FLUSH 5 ML FLUSH FLUSH SCH ×2 (08:39→20:59)
[2016-12-16] MEDS: DILTIAZEM-CD 240 MG CAP ER PO SCH (08:39)
[2016-12-16] MEDS ORDERED: ACETAMINOPHEN/HYDROcodone 325 MG/5 MG TAB PO PRN (10:00)
--- NOTE | 2016-12-16 10:43 | HHI.PR ---
Subjective Subjective Notes no acute issues, labs trending down, mild distension, oob ambulating Objective Vitals/I&O Vital Signs Date Time Temp Pulse Resp B/P Pulse Ox O2 Delivery O2 Flow Rate FiO2 12/16/16 08:00 96.6 79 17 129/73 94 12/15/16 17:47 21 12/15/16 13:45 Nasal Cannula 2 Labs Laboratory Tests Test 12/16/16 04:00 Total Bilirubin 1.0 Direct Bilirubin 0.3 Indirect Bilirubin 0.7 Aspartate Amino Transf 126 (AST/SGOT) Alanine Aminotransferase 226 (ALT/SGPT) Alkaline Phosphatase 237 Total Protein 6.1 Albumin 2.8 Lipase 480 Radiology Last Impressions Abdomen X-Ray 12/14/16 0000 Signed Impressions: Service Date/Time: December 11:01 - CONCLUSION: 1. Opacification of the non-dilated pancreatic duct. Kemar Chavez MD Orbit X-Ray 12/13/16 0000 Signed Impressions: Service Date/Time: Tuesday, December 13, 2016 10:14 - CONCLUSION: No MRI incompatible foreign body is identified. Robin Hopper MD FACR Cholangiopancreatography MRI 12/13/16 0000 Signed Impressions: Service Date/Time: Tuesday, December 13, 2016 10:47 - CONCLUSION: 1. Distended thick walled gallbladder with extensive pericholecystic fluid suggesting acute cholecystitis until prove otherwise. Clinical correlation is recommended. 2. More significant focal wall thickening involving the gallbladder fundus suggesting adenomyomatosis within the fundus versus gallbladder wall mass. 3. Mild prominence of the common hepatic and common bile duct with smooth tapering of the distal common bile duct as described above. No focal filing defect is noted within the distal common bile duct. 4. Innumerable hepatic cysts and bilateral renal cysts. 5. Degenerative changes and scoliosis of the thoracolumbar spine. Kemar Chavez MD Abdomen/Pelvis CT 12/12/162052 Signed Impressions: Service Date/Time: Monday, December 12, 2016 21:46 - CONCLUSION: 1. Gallbladder wall thickening with some stranding in the pericholecystic fat most characteristic of cholecystitis. No significant biliary ductal dilatation. 2. Multiple hepatic cysts and bilateral renal cysts. Robbin Wheat MD Gall Bladder Ultrasound 12/12/162042 Signed Impressions: Service Date/Time: Monday, December 12, 2016 20:54 - CONCLUSION: 1. Thickening of gallbladder wall to [address] correlation, findings are most characteristic of cholecystitis. No biliary ductal dilatation. No free fluid. 2. Multiple hepatic and right renal cysts. Robbin Wheat MD Cardiovascular: Regular Abdomen: Other (incisions with band aids, c/d/i, mild distension) A/P Problem List: (1) Acute cholecystitis (2) Acute pancreatitis (3) Abdominal pain (4) Acid reflux disease (5) Elevated liver enzymes (6) Acute gallstone pancreatitis (7) Abnormal findings on diagnostic imaging of liver and biliary tract Assessment and Plan gallstone pancreaitits s/p lap davidson POD 1 plan reg diet d/c ivf po pain control recheck labs in am dvt ppx Problem Qualifiers (1) Acute pancreatitis: Qualified Code: K85.90 - Acute pancreatitis without infection or necrosis, unspecified pancreatitis type (2) Abdominal pain: Qualified Code: R10.11 - Right upper quadrant abdominal pain (3) Acid reflux disease: Qualified Code: K21.9 - Gastroesophageal reflux disease, esophagitis presence not specified Mak Mayers MD Dec 16, 2016 10:43
--- NOTE | 2016-12-16 10:53 | HHI.GIFU ---
Subjective Remarks Ambulating in halls. Mild discomfort at surgical site. Not much appetite, but taking some clears. Distended today, not passing flatus- states he is going to try to get up and walk more today. (Ct Wang) Objective Vitals I&O Vital Signs Date Time Temp Pulse Resp B/P Pulse Ox O2 Delivery O2 Flow Rate FiO2 12/16/16 08:00 96.6 79 17 129/73 94 12/16/16 04:00 97.3 86 18 127/72 94 12/16/16 00:00 99.1 73 18 127/73 94 12/15/16 20:00 97.6 65 20 132/70 96 12/15/16 17:47 96 21 12/15/16 14:17 96.6 69 16 142/72 95 12/15/16 13:45 84 16 136/76 96 Nasal Cannula 2 12/15/16 13:30 74 16 141/75 97 Nasal Cannula 2 12/15/16 13:15 74 16 135/77 96 Nasal Cannula 2 12/15/16 13:00 106 16 137/84 97 Nasal Cannula 2 12/15/16 12:57 97.7 108 16 141/81 96 Nasal Cannula 2 I/O 12/15/16 12/15/16 12/15/16 12/16/16 12/16/16 12/16/16 07:00 15:00 23:00 07:00 15:00 23:00 Intake Total 794 ml 20 ml 726 ml 1021 ml Balance 794 ml 20 ml 726 ml 1021 ml Intake Oral 0 ml 0 ml 320 ml 320 ml IV Total 794 ml 20 ml 406 ml 701 ml # Voids 3 1 1 3 # Bowel Movements 0 0 0 Laboratory Laboratory Tests Test 12/16/16 04:00 Total Bilirubin 1.0 Direct Bilirubin 0.3 Indirect Bilirubin 0.7 Aspartate Amino Transf 126 (AST/SGOT) Alanine Aminotransferase 226 (ALT/SGPT) Alkaline Phosphatase 237 Total Protein 6.1 Albumin 2.8 Lipase 480 Imaging Last Impressions Abdomen X-Ray 12/14/16 0000 Signed Impressions: Service Date/Time: December 11:01 - CONCLUSION: 1. Opacification of the non-dilated pancreatic duct. Kemar Chavez MD Orbit X-Ray 2/8/17 0000 Signed Impressions: Service Date/Time: Tuesday, December 13, 2016 10:14 - CONCLUSION: No MRI incompatible foreign body is identified. Robin Hopper MD FACR Cholangiopancreatography MRI 12/13/16 Signed Impressions: Service Date/Time: Tuesday, December 13, 2016 10:47 - CONCLUSION: 1. Distended thick walled gallbladder with extensive pericholecystic fluid suggesting acute cholecystitis until prove otherwise. Clinical correlation is recommended. 2. More significant focal wall thickening involving the gallbladder fundus suggesting adenomyomatosis within the fundus versus gallbladder wall mass. 3. Mild prominence of the common hepatic and common bile duct with smooth tapering of the distal common bile duct as described above. No focal filing defect is noted within the distal common bile duct. 4. Innumerable hepatic cysts and bilateral renal cysts. 5. Degenerative changes and scoliosis of the thoracolumbar spine. Kemar Chavez MD Abdomen/Pelvis CT 12/12/162052 Signed Impressions: Service Date/Time: Monday, December 12, 2016 21:46 - CONCLUSION: 1. Gallbladder wall thickening with some stranding in the pericholecystic fat most characteristic of cholecystitis. No significant biliary ductal dilatation. 2. Multiple hepatic cysts and bilateral renal cysts. Robbin Wheat MD Gall Bladder Ultrasound 12/12/162042 Signed Impressions: Service Date/Time: Monday, December 12, 2016 20:54 - CONCLUSION: 1. Thickening of gallbladder wall to [address] correlation, findings are most characteristic of cholecystitis. No biliary ductal dilatation. No free fluid. 2. Multiple hepatic and right renal cysts. Robbin Wheat MD Physical Exam HEENT: Normocephalic; atraumatic; no jaundice. CHEST: CTA CARDIAC: RRR ABDOMEN: Soft, rounded, distended, nontender; no hepatosplenomegaly; bowel sounds are present in all four quadrants. bandaids d/i EXTREMITIES: No clubbing, cyanosis, or edema. SKIN: Normal; no rash; no jaundice. POCKET CUTTER: No focal deficits; alert and oriented times three. (Ct Wang) Assessment and Plan Plan ASSESSMENT: - Abdominal pain with dilated CBD/elevated LFTs. US, CT suggestive of cholecystitis, MRCP Distended thick walled gallbladder with extensive pericholecystic fluid suggesting acute cholecystitis until prove otherwise. More significant focal wall thickening involving the gallbladder fundus suggesting adenomyomatosis within the fundus versus gallbladder wall mass. Mild prominence of the common hepatic and common bile duct with smooth tapering of the distal common bile duct as described above. No focal filing defect is noted within the distal common bile duct. Innumerable hepatic cysts and bilateral renal cysts. S/P ERCP (12/14/16)----> normal pancreatogram, unable to access the bile duct. S/P Lap. Katiuska with IOC (12/15)---> Chronically inflamed and acutely inflamed gallbladder, contrast flowed through a slightly compressed from inflamed pancreas distal common duct no stones were seen. Lipase much improved, down to 480. LFTs improving with T. Bili 0.3, AST 126, ALT 226, Alk Phosph 237. - Gallstone pancreatitis. Lipase 2074---> 480. S/P Lap. Katiuska. POD #1 - Abdominal distention. Hypoactive bowel sounds. No n/v, but decreased appetite. - Chronic GERD- PPI - CAD, COPD, hypertension, hyperlipidemia per attending Plan: - Diet per GS - PPI - S/P Lap. Katiuska with IOC - Encourage ambulation - GI will sign off, please reconsult as needed - Patient seen and examined by Dr. Gaines and myself and this note is written on his behalf. (Ct Wang) Physician Comments Seen and examined with KIMI, doing better, LFTs improving. Mild illeus post surgery. CBD showed no obstruction on I.O.C. Will sign off. Reconsult as needed. Thank you (Jess Gaines MD) Ct Wang Dec 16, 2016 10:52 Jess Gaines MD Dec 16, 2016 12:59
[2016-12-16 12:00] VITALS: BP 132/71; PULSE 83; RESP 17; TEMP 96.7; O2SAT 95
[2016-12-16] MEDS: ACETAMINOPHEN/HYDROcodone 325 MG/5 MG TAB PO PRN ×2 (12:23→23:27)
[2016-12-16] MEDS: ONDANSETRON HCL 4 MG/2 ML VIAL IVP PRN ×2 (12:23→18:08)
--- NOTE | 2016-12-16 13:49 | HHI.PR ---
Subjective Remarks no acute issues. Tolerating diet denies abdominal pain/nausea or vomiting. denies fevers/chills stable vital signs. states has a poor appetite. Objective Vitals Vital Signs Date Time Temp Pulse Resp B/P Pulse Ox O2 Delivery O2 Flow Rate FiO2 12/16/16 12:00 96.7 83 17 132/71 95 12/16/16 08:48 18 12/16/16 08:00 96.6 79 17 129/73 94 12/16/16 04:00 97.3 86 18 127/72 94 12/16/16 00:00 99.1 73 18 127/73 94 12/15/16 20:00 97.6 65 20 132/70 96 12/15/16 17:47 96 21 12/15/16 14:17 96.6 69 16 142/72 95 I/O 12/15/16 12/15/16 12/15/16 12/16/16 12/16/16 12/16/16 07:00 15:00 23:00 07:00 15:00 23:00 Intake Total 794 ml 20 ml 726 ml 1021 ml Balance 794 ml 20 ml 726 ml 1021 ml Intake Oral 0 ml 0 ml 320 ml 320 ml IV Total 794 ml 20 ml 406 ml 701 ml # Voids 3 1 1 3 # Bowel Movements 0 0 0 Result Diagram: 12/15/160 12/15/16 0420 Imaging Last Impressions Abdomen X-Ray 12/14/16 0000 Signed Impressions: Service Date/Time: December 11:01 - CONCLUSION: 1. Opacification of the non-dilated pancreatic duct. Kemar Chavez MD Orbit X-Ray 12/13/16 0000 Signed Impressions: Service Date/Time: Tuesday, December 13, 2016 10:14 - CONCLUSION: No MRI incompatible foreign body is identified. Robin Hopper MD FACR Cholangiopancreatography MRI 12/13/16 0000 Signed Impressions: Service Date/Time: Tuesday, December 13, 2016 10:47 - CONCLUSION: 1. Distended thick walled gallbladder with extensive pericholecystic fluid suggesting acute cholecystitis until prove otherwise. Clinical correlation is recommended. 2. More significant focal wall thickening involving the gallbladder fundus suggesting adenomyomatosis within the fundus versus gallbladder wall mass. 3. Mild prominence of the common hepatic and common bile duct with smooth tapering of the distal common bile duct as described above. No focal filing defect is noted within the distal common bile duct. 4. Innumerable hepatic cysts and bilateral renal cysts. 5. Degenerative changes and scoliosis of the thoracolumbar spine. Kemar Chavez MD Abdomen/Pelvis CT 12/12/162052 Signed Impressions: Service Date/Time: Monday, December 12, 2016 21:46 - CONCLUSION: 1. Gallbladder wall thickening with some stranding in the pericholecystic fat most characteristic of cholecystitis. No significant biliary ductal dilatation. 2. Multiple hepatic cysts and bilateral renal cysts. Robbin Wheat MD Gall Bladder Ultrasound 12/12/162042 Signed Impressions: Service Date/Time: Monday, December 12, 2016 20:54 - CONCLUSION: 1. Thickening of gallbladder wall to [address] correlation, findings are most characteristic of cholecystitis. No biliary ductal dilatation. No free fluid. 2. Multiple hepatic and right renal cysts. Robbin Wheat MD Objective Remarks GENERAL: This is a well-nourished, well-developed patient, in no apparent distress. CARDIOVASCULAR: Normal rate and regular rhythm without murmurs, gallops, or rubs. RESPIRATORY: Good respiratory efforts. Breath sounds equal and clear to auscultation bilaterally. GASTROINTESTINAL: Abdomen soft, non-distended, laparoscopic site dressings intact. MUSCULOSKELETAL: Extremities without cyanosis, or edema. NEURO: Alert & Oriented x4 to person, place, time, situation. Moves all ext x4 PSYCH: Appropriate mood and affect. Procedures ERCP Medications and IVs Current Medications Medications (Trade) Dose Ordered Sig/Nehemias Route Start Time Stop Time Status Last Admin (NS Flush) 2 ml UNSCH PRN FLUSH 12/13/16 01:30 12/15/16 14:35 (NS Flush) 2 ml BID FLUSH 12/13/16 09:00 12/15/16 08:53 (Zofran Inj) 4 mg Q6H PRN IVP 12/13/16 01:30 12/16/16 12:23 Naloxone HCl 0.4 mg 0.4 mg UNSCH PRN IV 12/13/16 01:30 (Zosyn 4.5 Gm Premix) 100 ml @ 200 mls/hr Q6H IV 12/13/16 05:00 12/16/16 08:38 (Imdur) 30 mg DAILY@07 PO 12/13/16 07:00 12/16/16 06:33 (Singulair) 10 mg HS PO 12/13/16 21:00 12/15/16 21:51 (Protonix) 40 mg DAILY PO 12/13/16 09:00 12/16/16 08:39 (Cardizem Cd) 240 mg DAILY PO 12/13/16 09:00 12/16/16 08:39 Morphine Sulfate 4 mg 4 mg Q3H PRN IV PUSH 12/14/16 16:30 12/16/16 08:43 (Lr 1000 ml Inj) 1,000 ml @ 30 mls/hr Q24H IV 12/15/16 05:30 12/15/16 10:30 ([place] 5-325 Mg) 1 tab Q4H PRN PO 12/16/16 10:00 12/16/16 12:23 ([place] 5-325 Mg) 2 tab Q4H PRN PO 12/16/16 10:00 A/P Problem List: (1) Acute cholecystitis ICD Code: K81.0 Status: Acute (2) Acute pancreatitis ICD Code: K85.90 Status: Acute (3) Abdominal pain ICD Code: R10.9 Status: Acute (4) Acid reflux disease ICD Code: K21.9 Status: Acute Assessment and Plan 66-year-old male admitted with: Suspect Gallstone pancreatitis - Continue supportive care. He is status post ERCP. Discussed with Dr. Holgiun, he could not get into the common bile duct. - S/P lap cholecystectomy - Patient tolerating clear liquid diet, mild distension of abdomen - Lipase trending down from 2073 to - Discussed with Dr Mayers - Possible dc in am if patient moving his bowels better and if tolerating diet. Choledocholithiasis and cholecystitis: - Appreciate general surgery following. POD 1 lap davidson. Elevated LFTs: Secondary to above. - Follow up lipase and LFT in AM. - Lft's trending down - continue to monitor. Chronic GERD: Continue PPI Mild post op ileus: Abdomen slightly distended. Will start on senna - colace and Miralax. Continue home medications for chronic conditions including CAD, hypertension and hyperlipidemia. GI prophylaxis: PPI. DVT PPx: SCDs Discharge Planning DC when cleared by surgery. Discussed poss dc in am pending clinical improvement. Problem Qualifiers (1) Acute pancreatitis: Qualified Code: K85.90 - Acute pancreatitis without infection or necrosis, unspecified pancreatitis type (2) Abdominal pain: Qualified Code: R10.11 - Right upper quadrant abdominal pain (3) Acid reflux disease: Qualified Code: K21.9 - Gastroesophageal reflux disease, esophagitis presence not specified Sotero Hargrove MD Dec 16, 2016 13:49
[2016-12-16 15:27] LABS: BICARBONATE 24.8 MEQ/L (21.0-32.0); POTASSIUM 3.9 MEQ/L (3.5-5.1)
[2016-12-16] MEDS ORDERED: POLYETHYLENE GLYCOL 17 GM PKG PO ONE (15:30)
[2016-12-16] MEDS: DOCUSATE SODIUM 50 MG/SENNA 8.6 MG TAB PO SCH (15:40)
[2016-12-16 16:00] VITALS: BP 130/64; PULSE 67; RESP 17; TEMP 95.4; O2SAT 98
[2016-12-16 20:00] VITALS: BP 136/78; PULSE 76; RESP 20; TEMP 99.3; O2SAT 94
[2016-12-16] MEDS: MONTELUKAST SODIUM 10 MG TAB PO SCH (20:58)
[2016-12-17] VITALS: BP 133/72; PULSE 72; RESP 20; TEMP 98.7; O2SAT 94
[2016-12-17 04:00] VITALS: BP 124/73; PULSE 80; RESP 18; TEMP 98.6; O2SAT 93
[2016-12-17] MEDS: PIPERACIL-TAZO 4.5 GM PREMIX 100 ML IV SCH ×3 (05:12→16:27)
[2016-12-17 07:31] LABS: INDIRECT BILIRUBIN 0.5 MG/DL (0.0-0.8); TOTAL BILIRUBIN ADULT 0.8 MG/DL (0.2-1.0)
[2016-12-17 08:00] VITALS: BP 152/85; PULSE 85; RESP 17; TEMP 97.1; O2SAT 95
[2016-12-17] MEDS: DOCUSATE SODIUM 50 MG/SENNA 8.6 MG TAB PO SCH (08:07)
[2016-12-17] MEDS: SODIUM CHLORIDE 0.9% FLUSH 5 ML FLUSH FLUSH SCH (08:07)
[2016-12-17] MEDS: DILTIAZEM-CD 240 MG CAP ER PO SCH (08:07)
[2016-12-17] MEDS: ONDANSETRON HCL 4 MG/2 ML VIAL IVP PRN (08:07)
[2016-12-17] MEDS: PANTOPRAZOLE SOD 40 MG DELAYED RELEASE TAB PO SCH (08:07)
[2016-12-17] MEDS: ISOSORBIDE MONONITRATE 30 MG TAB PO SCH (08:13)
[2016-12-17 10:42] VITALS: O2SAT 94
[2016-12-17 12:00] VITALS: BP 144/75; PULSE 75; RESP 17; TEMP 98.3; O2SAT 96
[2016-12-17 16:00] VITALS: BP 134/73; PULSE 73; RESP 17; TEMP 97.9; O2SAT 95
[2016-12-17] MEDS ORDERED: SENN1TAB2 PO (19:06)
[2016-12-17] MEDS ORDERED: DULC10SU3 RECTAL (19:06)
--- NOTE | 2016-12-17 19:07 | HHI.DCPOC ---
Discharge Care Plan Diagnosis: (1) Acute gallstone pancreatitis (2) Elevated liver enzymes (3) Acute pancreatitis (4) Acute cholecystitis (5) Acid reflux disease (6) Abdominal pain (7) HTN (hypertension) (8) CAD (coronary artery disease) Goals to Promote Your Health * To prevent worsening of your condition and complications * To maintain your health at the optimal level Directions to Meet Your Goals Take your medications as prescribed Follow your dietary instruction Follow activity as directed Keep your appointments as scheduled Take your immunizations and boosters as scheduled If your symptoms worsen call your PCP, if no PCP go to Urgent Care Center or Emergency Room Smoking is Dangerous to Your Health. Avoid second hand smoke Call the 24-hour hour crisis hotline for domestic abuse at Sotero Hargrove MD Dec 17, 2016 19:07
--- NOTE | 2016-12-17 19:12 | HHI.DS ---
Discharge Summary Admission Date Dec 12, 2016 at 23:03 Discharge Date: Dec 17, 2016 Admitting Diagnosis Acute Cholecystitis (1) Acute cholecystitis ICD Code: K81.0 Diagnosis: Principal (2) Abdominal pain ICD Code: R10.9 Diagnosis: Principal (3) Acid reflux disease ICD Code: K21.9 Diagnosis: Principal (4) Acute gallstone pancreatitis ICD Code: K85.10 Diagnosis: Principal Procedures ERCP Brief History - From Admission History from patient, ER physician communication, and review of medical records. Patient reported that he came to the hospital because he has been having this abdominal pain. He stated it was in the middle of his abdomen, pointing to towards mid epigastrium. Also reports of nausea all day long. Did not vomit. Denies any diarrhea or constipation. Denies any hematemesis/hematochezia/melena/hematuria. Denies fever. Patient states that he did have appendectomy previously. However still has his gallbladder. Reports he has not drank any alcohol for the past 3 weeks. He usually drinks socially also he tends to drink about 6 beers when he drinks. Denies any any prior history of gallstones. CBC/BMP: 12/15/16 0420 12/16/16 0400 Significant Findings Laboratory Tests Test 12/15/16 12/16/16 12/17/16 04:20 04:00 05:55 Red Blood Count 4.48 MIL/MM3 (4.50-5.90) Potassium Level 3.3 MEQ/L (3.5-5.1) Blood Urea Nitrogen 5 MG/DL (7-18) Calcium Level 8.2 MG/DL 8.3 MG/DL (8.5-10.1) (8.5-10.1) Total Bilirubin 1.4 MG/DL (0.2-1.0) Direct Bilirubin 0.6 MG/DL 0.3 MG/DL 0.3 MG/DL (0.0-0.2) (0.0-0.2) (0.0-0.2) Aspartate Amino Transf 218 U/L (15-37) 126 U/L (15-37) 61 U/L (15-37) (AST/SGOT) Alanine Aminotransferase 302 U/L (12-78) 226 U/L (12-78) 155 U/L (12-78) (ALT/SGPT) Alkaline Phosphatase 324 U/L 237 U/L 183 U/L (45-117) (45-117) (45-117) Albumin 3.1 GM/DL 2.8 GM/DL 2.7 GM/DL (3.4-5.0) (3.4-5.0) (3.4-5.0) Amylase Level 157 U/L (25-115) Lipase 2074 U/L 480 U/L (73-393) (73-393) Estimat Glomerular Filtration 88 ML/MIN (>89) Rate Total Protein 6.1 GM/DL 6.2 GM/DL (6.4-8.2) (6.4-8.2) Imaging Last Impressions Abdomen X-Ray 12/14/16 0000 Signed Impressions: Service Date/Time: December 11:01 - CONCLUSION: 1. Opacification of the non-dilated pancreatic duct. Kemar Chavez MD Orbit X-Ray 12/13/16 0000 Signed Impressions: Service Date/Time: Tuesday, December 13, 2016 10:14 - CONCLUSION: No MRI incompatible foreign body is identified. Robin Hopper MD FACR Cholangiopancreatography MRI 12/13/16 0000 Signed Impressions: Service Date/Time: Tuesday, December 13, 2016 10:47 - CONCLUSION: 1. Distended thick walled gallbladder with extensive pericholecystic fluid suggesting acute cholecystitis until prove otherwise. Clinical correlation is recommended. 2. More significant focal wall thickening involving the gallbladder fundus suggesting adenomyomatosis within the fundus versus gallbladder wall mass. 3. Mild prominence of the common hepatic and common bile duct with smooth tapering of the distal common bile duct as described above. No focal filing defect is noted within the distal common bile duct. 4. Innumerable hepatic cysts and bilateral renal cysts. 5. Degenerative changes and scoliosis of the thoracolumbar spine. Kemar Chavez MD Abdomen/Pelvis CT 12/12/162052 Signed Impressions: Service Date/Time: Monday, December 12, 2016 21:46 - CONCLUSION: 1. Gallbladder wall thickening with some stranding in the pericholecystic fat most characteristic of cholecystitis. No significant biliary ductal dilatation. 2. Multiple hepatic cysts and bilateral renal cysts. Robbin Wheat MD Gall Bladder Ultrasound 12/12/162042 Signed Impressions: Service Date/Time: Monday, December 12, 2016 20:54 - CONCLUSION: 1. Thickening of gallbladder wall to [address] correlation, findings are most characteristic of cholecystitis. No biliary ductal dilatation. No free fluid. 2. Multiple hepatic and right renal cysts. Robbin Wheat MD PE at Discharge GENERAL: This is a well-nourished, well-developed patient, in no apparent distress. CARDIOVASCULAR: Normal rate and regular rhythm without murmurs, gallops, or rubs. RESPIRATORY: Good respiratory efforts. Breath sounds equal and clear to auscultation bilaterally. GASTROINTESTINAL: Abdomen soft, non-distended, laparoscopic site dressings intact. MUSCULOSKELETAL: Extremities without cyanosis, or edema. NEURO: Alert & Oriented x4 to person, place, time, situation. Moves all ext x4 PSYCH: Appropriate mood and affect. Pt update on day of discharge As per report the patient has been walking the entire day. Patient states he has been passing gas but has not had a bowel movement yet. Denies abdominal pain except for some right upper quadrant pain in the postsurgical site. The patient denies any nausea vomiting. Abdomen seems to be slightly distended but there are bowel sounds present and it is soft, nontender. RN communicated with the surgeon control operator who cleared the patient to the discharge. I will discharge the patient to home with oral pain medications and Senna/colace, as well as Dulcolax suppositories is a patient cannot move his bowels. Hospital Course 66-year-old male admitted with: Gallstone pancreatitis - Treated with supprotive care. Patient uderwent ERCP. Discussed with Dr. Holguin, he could not get into the common bile duct. - S/P lap cholecystectomy - Patient tolerating clear liquid diet and diet was advanced as tolerated. - Lipase trending down from 2073 to - Discussed with Dr Mayers Choledocholithiasis and cholecystitis: - Appreciate general surgery following. Sp laparoscopic cholecystectomy. Elevated LFTs: Secondary to above. - Follow up lipase and LFT in AM. - Lft's trending down - Monitored during hospital stay. Chronic GERD: Continue PPI Mild post op ileus: Abdomen slightly distended. Will start on senna - colace and Miralax. Continue home medications for chronic conditions including CAD, hypertension and hyperlipidemia. GI prophylaxis: PPI. DVT PPx: SCDs Pt Condition on Discharge: Stable Discharge Disposition: Discharge Home Discharge Time: <= 30 minutes Discharge Instructions DIET: Follow Instructions for: Heart Healthy Diet Activities you can perform: Regular-No Restrictions Activities to Avoid: Lifting/Bending, Strenuous Activity Follow up Referrals: Surgical with Robbin Celis MD New Medications: Bisacodyl Supp (Dulcolax Supp) 10 Mg Supp 10 MG RECTAL DAILY PRN CONSTIPATION #12 Ref 0 SUPP Hydrocodone-Acetaminophen ([place]) 5-325 mg Tab 1 TAB PO Q6H PRN PAIN #28 Ref 0 TAB Sennosides-Docusate Sodium (Senna-Docusate Sodium) 8.6-50 Mg Tab 2 TAB PO DAILY Constipation #10 Ref 0 TAB Continued Medications: Atorvastatin (Atorvastatin) 40 Mg Tab 40 MG PO HS Cholesterol Management #30 Ref 0 TAB Diltiazem (Diltiazem) 120 Mg Tab 240 MG PO DAILY Angina #120 Ref 0 TAB Glucosamine (Glucosamine) 500 Mg Cap 500 MG PO DAILY Herbal Supplements Ref 0 CAP Isosorbide Mononitrate ER (Isosorbide Mononitrate ER) 30 Mg Indra 30 MG PO DAILY Prevent Chest Pain #30 Ref 0 TAB Montelukast (Montelukast) 10 Mg Tab 10 MG PO HS #30 Ref 0 TAB Omeprazole (Omeprazole) 40 Mg Cap 40 MG PO DAILY #30 Ref 0 CAP Discontinued Medications: Aspirin (Aspirin) 325 Mg Tab 325 MG PO DAILY #30 Ref 0 TAB Sotero Hargrove MD Dec 17, 2016 19:12
--- NOTE | 2016-12-18 07:49 | RADRPT ---
EXAM DATE/TIME: 12/15/2016 12:06 [facility] COMPARISON: No previous studies available for comparison. INDICATIONS: Cholecystitis. FLUORO TIME: 1.1 minutes IMAGE COUNT: 4 MEDICAL HISTORY: None. SURGICAL HISTORY: None. ENCOUNTER: Initial ACUITY: 4 - 6 days PAIN SCORE: Non-responsive. LOCATION: Right Abdomen. PROCEDURE: CHOLANGIOGRAM, OPERATIVE Again seen is the dilatation of the common duct. Common duct is dilated into the head of the pancrea s. There is apparent free flow into the duodenum. There is a single filling defect evident. The filling defect changes shape and could be either debri s or blood clot. CONCLUSION: Filling defect in common duct that changes shape like debris. Free flow into the duodenum.. Robin Hopper MD FACR on December 15, 2016 at 13:29 Board Certified Radiologist. This report was verified electronically.
--- NOTE | 2016-12-18 12:52 | MP ---
cc: JOSE CELIS M.D. DATE OF SURGERY 12/15/2016 PREOPERATIVE DIAGNOSIS Cholelithiasis, cholecystitis with inability to perform an ERCP by the jack spooler tender. POSTOPERATIVE DIAGNOSIS Cholelithiasis, cholecystitis with inability to perform an ERCP by the jack spooler tender. PROCEDURE 1. Laparoscopic cholecystectomy. 2. Laparoscopic intraoperative cholangiogram showing slightly dilated common duct with mild tapering, probably from edema of the gallbladder or edema around the distal duct from pancreatitis with flow into the duodenum. ANESTHESIA General. SURGEON Dr. Celis INDICATIONS This is a pleasant 66-year-old gentleman who had a bout of gallstone pancreatitis. He had an MRCP which showed some tapering of the common duct. ERCP was attempted by the jack spooler tender but this was not able to be performed. They have asked me to perform an intraoperative cholangiogram to further delineate the anatomy of the distal common duct. Intraoperatively it was found that he had flow through the common duct but the duct was tapered. I did not see any stones in the duct. I think the tapering is a result of his pancreatitis with some edema around the head of the pancreas. PROCEDURE The patient is taken to the operating room, placed in supine position after endotracheal incision. His abdomen is prepped with Betadine. We make an incision below the xyphoid because of the previous surgery at the umbilicus. We enter the abdomen directly. The balloon trocar is introduced. The abdomen is insufflated with 15 mmHg. We dissect down by the umbilicus. There are some flimsy adhesions to the anterior abdominal wall where he had mesh placed for repairing his umbilical hernia. This is taken down with blunt dissection. We then are able to place a trocar below the umbilicus and away from the mesh. This was a 5-mm port. We place another port in the midline between the two previously placed ports. Cameras are then placed through the umbilical port and gallbladder can be seen; it is distended and looks like he has chronic inflammation. We are able grasp it superior and laterally, dissecting up to the cystic duct and cystic artery which are clearly identified. We are able to make a small anne in the cystic duct and the cholangiogram catheter is then threaded into the cystic duct. We place one clip to hold it in place. We are able flush it with saline without difficulty, with no leakage. The fluoroscopy machine is then brought sterilely into the field and we inject contrast into the cystic duct through the cholangiogram catheter under fluoroscopic guidance visualizing the cystic duct and the common duct. I do not see any stones within the common duct. The common duct appears to be slightly dilated with a taper at the distal end that is fairly smooth. He does have contrast freely flow into the duodenum with minimal pressure. Numerous films were taken. I do not see any stones. I believe the result of the smooth tapering is edema around the pancreas from his bout of pancreatitis. After this is done, we then flush the cholangiocatheter with saline to get the contrast out. The cholangiogram catheter is then gently removed after the clip is removed and double clips are placed in the cystic duct stump and then the cystic artery is ligated with hemoclips and the gallbladder is then teased off the gallbladder bed, placed in the EndoCatch and pulled out through the subxiphoid incision, passed off the field. We then irrigate copiously, recheck our dissection site. There was excellent hemostasis without biliary leakage. We then remove the irrigating solution with the CO2. The subxiphoid incision is closed with a 0 Vicryl, the fascial layer and all four ports closed with a 4-0 Vicryl at the skin level. The patient tolerated the procedure well, had no immediate postop complication. Jose Celis MD JDB/SSB /2:46 PM /12:41 PM
== END 2016-12-17 19:57 | disposition home or self-care (01) | DRG 417 ==
LOC: NEPE 14:20 → NEDA 23:03 → NEDH 12-13 03:10 → NEPHCDU 12-13 21:10 → N07B 12-14 11:43
PROVIDERS: ADMIT Hospitalist; ATTEND Hospitalist
PROC: 0FJD8ZZ Inspection of Pancreatic Duct, Via Natural or Artificial Opening Endoscopic (ICD-10-PCS; 2016-12-14)
PROC: BF101ZZ Fluoroscopy of Bile Ducts using Low Osmolar Contrast (ICD-10-PCS; 2016-12-15)
PROC: 0FT44ZZ Resection of Gallbladder, Percutaneous Endoscopic Approach (ICD-10-PCS; principal; 2016-12-15 11:09)
DX: K80.66 Calculus of gallbladder and bile duct with acute and chronic cholecystitis without obstruction (principal); K85.10 Biliary acute pancreatitis without necrosis or infection; K76.89 Other specified diseases of liver; J44.9 Chronic obstructive pulmonary disease, unspecified; N28.1 Cyst of kidney, acquired; K56.7 Ileus, unspecified; K91.89 Other postprocedural complications and disorders of digestive system; K21.9 Gastro-esophageal reflux disease without esophagitis; I10 Essential (primary) hypertension; I25.10 Atherosclerotic heart disease of native coronary artery without angina pectoris; J45.909 Unspecified asthma, uncomplicated; E78.5 Hyperlipidemia, unspecified; F41.9 Anxiety disorder, unspecified; N40.0 Benign prostatic hyperplasia without lower urinary tract symptoms; Z87.891 Personal history of nicotine dependence; Z95.5 Presence of coronary angioplasty implant and graft
CPT/HCPCS: 74000; 74177; 74181; 74300; 76000; 76377; 76705; 80048; 80053; 80076; 81001; 82150; 82550; 83690; 84484; 85025; 85027; 88304; 93005; 96361; 96374; 96375; C1769; C9113; J1130; J2250; J2270; J2405; J2543; J2710; J3010; J3480; J7030; J7040; J7120; Q9967